=== PATIENT | male | born 1975 | race Caucasian/White ===

== ENCOUNTER 2017-09-05 11:35 | Inpatient (IN) | payer OTHER ==
[2017-09-05 16:30] VITALS: BMI 30.2
--- NOTE | 2017-09-05 20:56 | HP ---
COWS - Scale Resting Pulse: 1= [place] 81-100 Sweatin= Beads of Sweat on Face Restless Observation: 1= Difficult to Sit Still Pupil Size: 1= Pupils >than Normal Bone or Joint Aches: 4=Acute Joint/Muscle Pain Runny Nose/ Eye Tearin= Runny Nose/Eyes GI Upset > 30mins: 3= Vomiting/Diarrhea (vomiting x 2, diarrhea x 2) Tremor Observation: 2= Slight Tremor Visible Yawning Observation: 1= 1-2x During Session Anxiety or Irritability: 2=Irritable/Anxious Goose Flesh Skin: 0=Smooth Skin COWS Score: 20 CIWA Score - CIWA Score Nausea/Vomitin Muscle Tremors: 4-Moderate,w/Arms Extend Anxiety: 3 Agitation: 4-Moderately Restless Paroxysmal Sweats: 3 Orientation: 0-Oriented Tacttile Disturbances: 0-None Auditory Disturbances: 0-None Visual Disturbances: 0-None Headache: 3-Moderate CIWA-Ar Total Score: 20 Admission ROS S - HPI Chief Complaint: Alcohol and opioid withdrawal symptoms Allergies/Adverse Reactions: Allergies Allergy/AdvReac Type Severity Reaction Status Date / Time No Known Allergies Allergy Verified 09/05/17 20:39 History of Present Illness: 42 years old male with a long history of alcohol and opioid dependence is seeking admission to detox. Patient has been in previous detox and reports 3 years of sobriety when he was in longterm. He has medical history of Hep. C and depression. Denies suicide attempt and suicidal ideation at this time Exam Limitations: No Limitations - Ebola screening Have you traveled outside of the country in the last 21 days: No (N) Have you had contact with anyone from an Ebola affected area: No Have you been sick,other than usual withdrawal symptoms: No Do you have a fever: No - Review of Systems Constitutional: Chills, Loss of Appetite, Malaise, Night Sweats, Changes in sleep EENT: reports: No Symptoms Reported Respiratory: reports: No Symptoms reported Cardiac: reports: No Symptoms Reported GI: reports: Diarrhea, Nausea, Poor Appetite, Poor Fluid Intake, Vomiting, Abdominal cramping : reports: No Symptoms Reported Musculoskeletal: reports: Back Pain, Muscle Pain, Muscle Weakness Integumentary: reports: Dryness, Sweating Neuro: reports: Headache, Tingling, Tremors Endocrine: reports: No Symptoms Reported Hematology: reports: No Symptoms Reported Psychiatric: reports: Orientated x3, Anxious Other Systems: Reviewed and Negative Patient History - Patient Medical History Hx Anemia: No Hx Asthma: No Hx Chronic Obstructive Pulmonary Disease (COPD): No Hx Cancer: No Hx Cardiac Disorders: No Hx Congestive Heart Failure: No Hx Hypertension: No Hx Hypercholesterolemia: No Hx Pacemaker: No HX Cerebrovascular Accident: No Hx Seizures: No Hx Diabetes: No Hx Gastrointestinal Disorders: No Hx Liver Disease: Yes (Hep. C) Hx Genitourinary Disorders: No Hx Sexually Transmitted Disorders: No Hx Renal Disease (ESRD): No Hx Thyroid Disease: No Hx Human Immunodeficiency Virus (HIV): No (Negative 2017) Hx Hepatitis C: Yes (Not treated) Hx Depression: Yes (Not on medication) Hx Suicide Attempt: No (Denies suicidal ideation at this time) Hx Bipolar Disorder: No Hx Schizophrenia: No - Patient Surgical History Past Surgical History: No Hx Neurologic Surgery: No Hx Cataract Extraction: No Hx Cardiac Surgery: No Hx Lung Surgery: No Hx Abdominal Surgery: No Hx Appendectomy: No Hx Cholecystectomy: No Hx Genitourinary Surgery: No Hx Section: No Hx Orthopedic Surgery: No Anesthesia Reaction: No - PPD History Previous Implant?: Yes Documented Results: Negative w/o proof Implanted On Prior [facility] Admission?: No PPD to be Administered?: Yes - Reproductive History Patient is a Female of Child Bearing Age (11 -55 yrs old): No (Male) - Smoking Cessation Smoking history: Current every day smoker Have you smoked in the past 12 months: Yes Aproximately how many cigarettes per day: 20 Hx Chewing Tobacco Use: No Initiated information on smoking cessation: Yes 'Breaking Loose' booklet given: 09/05/17 - Substance & Tx. History Hx Alcohol Use: Yes Hx Substance Use: Yes Substance Use Type: Heroin, Opiates - Substances Abused Alcohol Route: Oral Frequency: Daily Amount used: LIQUOR- 2 PINTS, BEER- 3 SIX PACK Age of first use: 12 Date of Last Use: 09/05/17 Heroin Route: Injection Frequency: Daily Amount used: 8 BAGS Age of first use: 12 Date of Last Use: 09/05/17 Family Disease History - Family Disease History Family Disease History: Other: Father (AIDS - ), Mother (HIV+ - ) Admission Physical Exam BHS - Vital Signs Vital Signs: Vital Signs - 24 hr 09/05/17 16:28 Temperature 97.8 F Pulse Rate 91 H Respiratory 19 Rate Blood Pressure 137/72 - Physical General Appearance: Yes: Moderate Distress, Tremorous, Irritable, Sweating, Anxious HEENTM: Yes: EOMI, Normal Voice, ELISABETH, Nasal Congestion, Rhinorrhea Respiratory: Yes: Lungs Clear, Normal Breath Sounds, No Respiratory Distress Neck: Yes: Supple Breast: Yes: Breast Exam Deferred Cardiology: Yes: Regular Rhythm, Regular Rate, S1, S2 Abdominal: Yes: Normal Bowel Sounds, Soft Genitourinary: Yes: Within Normal Limits Back: Yes: Normal Inspection Musculoskeletal: Yes: Within Normal Limits Extremities: Yes: Tremors 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: Yes: Alert, Normal Mood/Affect Integumentary: Yes: Warm Lymphatic: Yes: Within Normal Limits - Diagnostic (1) Opioid dependence with withdrawal Current Visit: Yes Status: Chronic (2) Alcohol dependence with uncomplicated withdrawal Current Visit: Yes Status: Chronic (3) Hep C w/o coma, chronic Current Visit: Yes Status: Chronic (4) Depression Current Visit: Yes Status: Chronic Qualifiers: Major depression episode severity: unspecified (5) Nicotine dependence Current Visit: Yes Status: Chronic Qualifiers: Nicotine product type: cigarettes Cleared for Admission S - Detox or Rehab [facility] Level of Care: Medically Managed Detox Regimen/Protocol: Methadone/Librium S Breath Alcohol Content Breath Alcohol Content: 0 Urine Drug Screen - Results Drug Screen Negative: No Urine Drug Screen Results: OPI-Opiates, MTD-Methadone, OXY-Oxycodone
[2017-09-05] MEDS ORDERED: IBUPROFEN 400 MG TABLET (FP) PO PRN (21:08)
[2017-09-05] MEDS ORDERED: MAGNESIUM CITRATE 300 ML BOTTLE PO PRN (21:08)
[2017-09-05] MEDS ORDERED: chlordiazePOXIDE HCL 25 MG CAPSULE PO PRN (21:08)
[2017-09-05] MEDS ORDERED: ACETAMINOPHEN 325 MG TABLET (FP) PO PRN (21:08)
[2017-09-05] MEDS ORDERED: P-EPHED 60MG/TRIPROLIDI 2.5MG TABLET PO PRN (21:08)
[2017-09-05] MEDS ORDERED: MAG HYDROX/AL HYDROX/SIMETH 30 ML UNIT-DOSE CUP PO PRN (21:08)
[2017-09-05] MEDS ORDERED: LOPERAMIDE HCL 2 MG CAPSULE PO PRN (21:08)
[2017-09-05] MEDS ORDERED: guaiFENesin/D-METHORPHAN HB 10 ML UNIT-DOSE CUPS PO PRN (21:08)
[2017-09-05] MEDS ORDERED: MAGNESIUM HYDROX 2400MG/30ML ORAL SUSPENSION 30 ML CUP PO PRN (21:08)
[2017-09-05] MEDS ORDERED: NICOTINE POLACRILEX 2 MG GUM BC PRN (21:08)
[2017-09-05] MEDS ORDERED: MENTHOL/PHENOL 1 EACH UD MM PRN (21:08)
[2017-09-05] MEDS ORDERED: METHADONE HCL 10 MG TABLET (FOR DETOX USE ONLY) PO ONE ×2 (21:08→23:00)
[2017-09-05] MEDS: chlordiazePOXIDE HCL 25 MG CAPSULE PO SCH (23:01)
[2017-09-05] MEDS: THIAMINE HCL 100 MG TABLET (FP) PO SCH (23:01)
[2017-09-05 23:41] LABS: URINE APPEARANCE CLEAR; URINE BILIRUBIN NEGATIVE (NEGATIVE); URINE BLOOD NEGATIVE (NEGATIVE); URINE COLOR COLORLESS; URINE GLUCOSE (UA) NEGATIVE (NEGATIVE); URINE KETONE NEGATIVE (NEGATIVE); URINE LEUK ESTERASE NEGATIVE (NEGATIVE); URINE NITRITE NEGATIVE (NEGATIVE); URINE PROTEIN NEGATIVE (NEGATIVE); URINE UROBILINOGEN NEGATIVE mg/dL (0.2-1.0)
[2017-09-06] MEDS: chlordiazePOXIDE HCL 25 MG CAPSULE PO SCH ×4 (05:23→22:07)
--- NOTE | 2017-09-06 08:44 | EKG ---
Test Reason : Blood Pressure : / mmHG Vent. Rate : 090 BPM Atrial Rate : 090 BPM P-R Int : 164 ms QRS Dur : 082 ms QT Int : 364 ms P-R-T Axes : 060 030 035 degrees QTc Int : 445 ms NORMAL SINUS RHYTHM NORMAL ECG NO PREVIOUS ECGS AVAILABLE Confirmed by JACOB STEPHENS, AYDEN ([id number]) on 09/06/2017 8:43:36 AM Referred By: Confirmed By:AYDEN JAMES MD
--- NOTE | 2017-09-06 09:53 | CONSULT ---
[facility] Psychiatric Consult - Data Date of interview: 09/06/17 Admission source: [facility] Identifying data: Readmission to [facility] for this 42 y/o male seeking detox treatment on for alcohol and heroin dependence.Patient is single,a father of six,homeless,unemployed and supported on Public Assistance. Substance Abuse History: Confirmed by patient in this interview. Smoking history : Current every day smoker. Have you smoked in the past 12 months: Yes. Aproximately how many cigarettes per day: 20. Hx Chewing Tobacco Use: No. Initiated information on smoking cessation: Yes. 'Breaking Loose' booklet given : 09/05/17. - Substance & Tx. History. Hx Alcohol Use: Yes. Hx Substance Use : Yes. Substance Use Type: Heroin, Opiates. - Substances Abused. Alcohol. Route: Oral. Frequency: Daily. Amount used: LIQUOR- 2 PINTS, BEER- 3 SIX PACK. Age of first use: 12. Date of Last Use: 09/05/17. Heroin. Route: Injection. Frequency: Daily. Amount used: 8 BAGS. Age of first use: 12. Date of Last Use: 09/05/17 Medical History: Hepatitis C. Psychiatric History: Patient denies. Physical/Sexual Abuse/Trauma History: Patient denies. Additional Comment: Urine Drug Screen Results: OPI-Opiates, MTD-Methadone, OXY- Oxycodone.Noted. Mental Status Exam - Mental Status Exam Alert and Oriented to: Time, Place, Person Cognitive Function: Good Patient Appearance: Well Groomed (tattoos painted over neck,arms and forearms) Mood: Hopeful, Euthymic Affect: Appropriate, Normal Range Patient Behavior: Appropriate, Cooperative Speech Pattern: Clear, Appropriate Voice Loudness: Normal Thought Process: Intact, Goal Oriented Thought Disorder: Not Present Hallucinations: Denies Suicidal Ideation: Denies Homicidal Ideation: Denies Insight/Judgement: Poor Sleep: Well Appetite: Good Muscle strength/Tone: Normal Gait/Station: Normal Psychiatric Findings - Problem List ([place] 1, 2,3) (1) Alcohol dependence with uncomplicated withdrawal Current Visit: Yes Status: Acute (2) Opioid dependence with withdrawal Current Visit: Yes Status: Acute (3) Nicotine dependence Current Visit: Yes Status: Acute Qualifiers: Nicotine product type: cigarettes Substance use status: in withdrawal Qualified Code(s): F17.213 - Nicotine dependence, cigarettes, with withdrawal - Initial Treatment Plan Initial Treatment Plan: Psychoeducation.Sleep hygiene discussed.Patient is made aware of scheduled groups,community meetings and recreational activities and he is encouraged to join/participate.Mr Moya agrees.Will monitor daily progress.
[2017-09-06] MEDS ORDERED: METHADONE HCL 10 MG TABLET (FOR DETOX USE ONLY) PO SCH (10:00)
--- NOTE | 2017-09-06 10:04 | PN ---
[facility] CIWA - CIWA Score Nausea/Vomitin-No Nausea/No Vomiting Muscle Tremors: 4-Moderate,w/Arms Extend Anxiety: 4-Mod. Anxious/Guarded Agitation: 4-Moderately Restless Paroxysmal Sweats: 1-Minimal Palms Moist Orientation: 0-Oriented Tacttile Disturbances: 3-Moderate Itch/Numb/Burn Auditory Disturbances: 0-None Visual Disturbances: 0-None Headache: 0-None Present CIWA-Ar Total Score: 16 BHS COWS - Scale Resting Pulse: 0= NC 80 or Below Sweatin= Chills/Flushing Restless Observation: 3= Extraneous Movement Pupil Size: 2= Moderately Dilated Bone or Joint Aches: 4=Acute Joint/Muscle Pain Runny Nose/ Eye Tearin= Nasal Congestion GI Upset > 30mins: 1= Stomach Cramp Tremor Observation of Outstretched Hands: 1= Tremor [place], Not Seen Yawning Observation: 2= >3x During Session Anxiety or Irritability: 2=Irritable/Anxious Goose Flesh Skin: 0=Smooth Skin COWS Score: 17 S Progress Note (SOAP) Subjective: ANXIETY,IRRITABILITY, SWEATS, TREMORS. Objective: 09/06/17 10:03 Vital Signs Temperature 97 F L 09/06/17 06:17 Pulse Rate 65 09/06/17 06:17 Respiratory Rate 18 09/06/17 06:17 Blood Pressure 105/64 09/06/17 06:17 O2 Sat by Pulse Oximetry (%) Laboratory Last Values Urine Color Colorless 09/05/17 20:22 Urine Appearance Clear 09/05/17 20:22 Urine pH 6.0 (5.0-8.0) 09/05/17 20:22 Ur Specific [place] 1.003 (1.001-1.035) 09/05/17 20:22 Urine Protein Negative (NEGATIVE) 09/05/17 20:22 Urine Glucose (UA) Negative (NEGATIVE) 09/05/17 20:22 Urine Ketones Negative (NEGATIVE) 09/05/17 20:22 Urine Blood Negative (NEGATIVE) 09/05/17 20:22 Urine Nitrite Negative (NEGATIVE) 09/05/17 20:22 Urine Bilirubin Negative (NEGATIVE) 09/05/17 20:22 Urine Urobilinogen Negative mg/dL (0.2-1.0) 09/05/17 20:22 Ur Leukocyte Esterase Negative (NEGATIVE) 09/05/17 20:22 OTHER LABS PENDING Assessment: 09/06/17 10:03 WITHDRAWAL SX Plan: CONTINUE DETOX
[2017-09-06] MEDS: NICOTINE 14 MG/24 HOURS TOPICAL PATCH TD SCH (10:07)
[2017-09-06] MEDS: PRENATAL VITAMINS W/ FOLIC ACID TABLET (FP) PO SCH (10:07)
[2017-09-06 10:33] LABS: HEMATOCRIT 38.3 % (35.4-49); HEMOGLOBIN 13.3 GM/dL (11.7-16.9); MCH 28.1 pg (25.7-33.7); MCHC 34.7 g/dl (32.0-35.9); MEAN CELL VOLUME 80.8 fl (80-96); PLATELET COUNT 155 K/MM3 (134-434); RBC 4.74 M/mm3 (4.00-5.60); RDW 15.5 % (11.9-15.9); WHITE BLOOD COUNT 8.6 K/mm3 (4.0-10.0)
[2017-09-06 10:34] LABS: ALBUMIN 3.2 g/dl (3.4-5.0); ANION GAP 7 (8-16); BLOOD UREA NITROGEN 13 mg/dL (7-18); CALCIUM 7.7 mg/dL (8.5-10.1); CHLORIDE 104 mmol/L (98-107); CO2 27 mmol/L (21-32); GLUCOSE,RANDOM 111 mg/dL (74-106); POTASSIUM 3.7 mmol/L (3.5-5.1); SODIUM 138 mmol/L (136-145)
[2017-09-06 10:40] LABS: ALK PHOS 86 U/L (45-117); BILIRUBIN,TOTAL 0.4 mg/dL (0.2-1.0); CREATININE 0.7 mg/dL (0.7-1.3); SGOT/AST 18 U/L (15-37); SGPT/ALT 29 U/L (12-78); TOT PROT 6.7 g/dl (6.4-8.2)
[2017-09-06] MEDS: THIAMINE HCL 100 MG TABLET (FP) PO SCH (22:07)
[2017-09-07] MEDS: chlordiazePOXIDE HCL 25 MG CAPSULE PO SCH ×2 (06:14→10:12)
[2017-09-07] MEDS ORDERED: AMMONIUM LACTATE 12% LOTION 225 GM BOTTLE TP SCH (10:00)
[2017-09-07] MEDS ORDERED: METHADONE HCL 5 MG TABLET (FOR DETOX USE ONLY) PO SCH (10:00)
[2017-09-07] MEDS: PRENATAL VITAMINS W/ FOLIC ACID TABLET (FP) PO SCH (10:13)
[2017-09-07] MEDS: NICOTINE 14 MG/24 HOURS TOPICAL PATCH TD SCH (10:14)
[2017-09-07] MEDS ORDERED: COLLOIDAL OATMEAL 1 BAR EACH TP PRN (10:17)
[2017-09-07 10:21] VITALS: PULSE 85
[2017-09-07 13:46] VITALS: BP 136/87; TEMP 97.9
--- NOTE | 2017-09-07 15:42 | PN ---
S CIWA - CIWA Score Nausea/Vomitin Muscle Tremors: None Anxiety: 4-Mod. Anxious/Guarded Agitation: 4-Moderately Restless Paroxysmal Sweats: 3 Orientation: 0-Oriented Tacttile Disturbances: 3-Moderate Itch/Numb/Burn Auditory Disturbances: 0-None Visual Disturbances: 0-None Headache: 0-None Present CIWA-Ar Total Score: 17 BHS COWS - Scale Resting Pulse: 1= [place] 81-100 Sweatin=Flushed/Facial Moisture Restless Observation: 1= Difficult to Sit Still Pupil Size: 0= Normal to Room Light Bone or Joint Aches: 1= Mild Discomfort Runny Nose/ Eye Tearin= None GI Upset > 30mins: 2= Nausea/Diarrhea Tremor Observation of Outstretched Hands: 0= None Yawning Observation: 1= 1-2x During Session Anxiety or Irritability: 2=Irritable/Anxious Goose Flesh Skin: 3=Piloerection COWS Score: 13 BHS Progress Note (SOAP) Subjective: Sweating, Fatigue, Anxious, Tremors, Nausea, Diarrhea. Objective: PATIENT A & O X 3, OBSERVED AMBULATING ON UNIT. NO ACUTE DISTRESS. 09/07/17 15:41 Vital Signs Temperature 97.9 F 09/07/17 13:46 Pulse Rate 85 09/07/17 13:46 Respiratory Rate 16 09/07/17 13:46 Blood Pressure 136/87 09/07/17 13:46 O2 Sat by Pulse Oximetry (%) Laboratory Tests 09/05/17 09/06/17 09/06/17 20:22 07:00 07:00 WBC 8.6 RBC 4.74 Hgb 13.3 Hct 38.3 MCV 80.8 MCH 28.1 MCHC 34.7 RDW 15.5 Plt Count 155 MPV 11.0 Sodium Potassium Chloride Carbon Dioxide Anion Gap BUN Creatinine Creat Clearance w eGFR Random Glucose Calcium Total Bilirubin AST ALT Alkaline Phosphatase Total Protein Albumin Urine Color Colorless Urine Appearance Clear Urine pH 6.0 Ur Specific [place] 1.003 Urine Protein Negative Urine Glucose (UA) Negative Urine Ketones Negative Urine Blood Negative Urine Nitrite Negative Urine Bilirubin Negative Urine Urobilinogen Negative Ur Leukocyte Esterase Negative RPR Titer HIV 1&2 Antibody Screen Negative HIV P24 Antigen Negative 09/06/17 09/06/17 07:00 07:00 WBC RBC Hgb Hct MCV MCH MCHC RDW Plt Count MPV Sodium 138 Potassium 3.7 Chloride 104 Carbon Dioxide 27 Anion Gap 7 L BUN 13 Creatinine 0.7 Creat Clearance w eGFR > 60 Random Glucose 111 H Calcium 7.7 L Total Bilirubin 0.4 AST 18 ALT 29 Alkaline Phosphatase 86 Total Protein 6.7 Albumin 3.2 L Urine Color Urine Appearance Urine pH Ur Specific [place] Urine Protein Urine Glucose (UA) Urine Ketones Urine Blood Urine Nitrite Urine Bilirubin Urine Urobilinogen Ur Leukocyte Esterase RPR Titer Nonreactive HIV 1&2 Antibody Screen HIV P24 Antigen LABS NOTED. Assessment: 09/07/17 15:41 WITHDRAWAL SYMPTOMS. Plan: CONTINUE DETOX.
--- NOTE | 2017-09-07 15:43 | DS ---
[facility] Detox Discharge Summary Admission Date: 09/05/17 Discharge Date: 09/07/17 - History Present History: Alcohol Dependence, Opioid Dependence Additional Comments: PATIENT DOES NOT WISH TO STAY TO COMPLETE DETOX REGIMEN. RISKS OF LEAVING DETOX UNIT AGAINST MEDICAL ADVICE AND PRIOR TO COMPLETION OF DETOX REGIMEN EXPLAINED TO PATIENT. PATIENT ADVISED TO GO IMMEDIATELY TO NEAREST ER SHOULD ANY INTOLERABLE DETOX SYMPTOMS DEVELOP AT ANY TIME. PATIENT LEFT DETOX UNIT IN STABLE MEDICAL CONDITION. Pertinent Past History: Hep C, Depression, Nicotine Dependence. - Physical Exam Results Vital Signs: Vital Signs Temperature 97.9 F 09/07/17 13:46 Pulse Rate 85 09/07/17 13:46 Respiratory Rate 16 09/07/17 13:46 Blood Pressure 136/87 09/07/17 13:46 O2 Sat by Pulse Oximetry (%) Pertinent Admission Physical Exam Findings: WITHDRAWAL SYMPTOMS. Laboratory Tests 09/05/17 09/06/17 09/06/17 20:22 07:00 07:00 WBC 8.6 RBC 4.74 Hgb 13.3 Hct 38.3 MCV 80.8 MCH 28.1 MCHC 34.7 RDW 15.5 Plt Count 155 MPV 11.0 Sodium Potassium Chloride Carbon Dioxide Anion Gap BUN Creatinine Creat Clearance w eGFR Random Glucose Calcium Total Bilirubin AST ALT Alkaline Phosphatase Total Protein Albumin Urine Color Colorless Urine Appearance Clear Urine pH 6.0 Ur Specific [place] 1.003 Urine Protein Negative Urine Glucose (UA) Negative Urine Ketones Negative Urine Blood Negative Urine Nitrite Negative Urine Bilirubin Negative Urine Urobilinogen Negative Ur Leukocyte Esterase Negative RPR Titer HIV 1&2 Antibody Screen Negative HIV P24 Antigen Negative 09/06/17 09/06/17 07:00 07:00 WBC RBC Hgb Hct MCV MCH MCHC RDW Plt Count MPV Sodium 138 Potassium 3.7 Chloride 104 Carbon Dioxide 27 Anion Gap 7 L BUN 13 Creatinine 0.7 Creat Clearance w eGFR > 60 Random Glucose 111 H Calcium 7.7 L Total Bilirubin 0.4 AST 18 ALT 29 Alkaline Phosphatase 86 Total Protein 6.7 Albumin 3.2 L Urine Color Urine Appearance Urine pH Ur Specific [place] Urine Protein Urine Glucose (UA) Urine Ketones Urine Blood Urine Nitrite Urine Bilirubin Urine Urobilinogen Ur Leukocyte Esterase RPR Titer Nonreactive HIV 1&2 Antibody Screen HIV P24 Antigen LABS NOTED. - Treatment Hospital Course: Detoxed Safely - Medication Discharge Medications: Ambulatory Orders NK [No Known Home Medication] 09/05/17 - Diagnosis (1) Alcohol dependence with uncomplicated withdrawal Current Visit: Yes Status: Acute (2) Nicotine dependence Current Visit: Yes Status: Acute Qualifiers: Nicotine product type: cigarettes Substance use status: in withdrawal Qualified Code(s): F17.213 - Nicotine dependence, cigarettes, with withdrawal (3) Opioid dependence with withdrawal Current Visit: Yes Status: Acute (4) Depression Current Visit: Yes Status: Chronic Qualifiers: Depression Type: unspecified Qualified Code(s): F32.9 - Major depressive disorder, single episode, unspecified (5) Hep C w/o coma, chronic Current Visit: Yes Status: Chronic - AMA Did Patient Leave Against Medical Advice: Yes (PATIENT DID NOT WISH TO STAY TO COMPLETE DETOX REGIMEN.)
[2017-09-07] MEDS ORDERED: chlordiazePOXIDE 5 MG CAPSULE PO SCH (23:00)
[2017-09-08] MEDS ORDERED: chlordiazePOXIDE HCL 10 MG CAPSULE PO SCH (23:00)
[2017-09-09] MEDS ORDERED: METHADONE HCL 10 MG TABLET (FOR DETOX USE ONLY) PO SCH (10:00)
[2017-09-10] MEDS ORDERED: METHADONE HCL 5 MG TABLET (FOR DETOX USE ONLY) PO SCH (06:00)
== END 2017-09-07 15:50 | disposition left against medical advice (07) | DRG 770 ==
LOC: YASAS 11:35 → Y3N 21:20
PROVIDERS: ADMIT Internal Medicine; ATTEND Internal Medicine
PROC: HZ2ZZZZ Detoxification Services for Substance Abuse Treatment (ICD-10-PCS; principal; 2017-09-05)
DX: F11.23 Opioid dependence with withdrawal (principal); F10.230 Alcohol dependence with withdrawal, uncomplicated; F17.213 Nicotine dependence, cigarettes, with withdrawal; F32.9 Major depressive disorder, single episode, unspecified; B18.2 Chronic viral hepatitis C
CPT/HCPCS: 36415; 80053; 81003; 85027; 86593; 87389; 93005; 93010

== ENCOUNTER 2018-08-27 17:20 | Inpatient (IN) | payer OTHER ==
[2018-08-27 17:56] VITALS: BMI 23.8
--- NOTE | 2018-08-27 21:01 | HP ---
COWS - Scale Resting Pulse: 1= [place] 81-100 Sweatin=Flushed/Facial Moisture Restless Observation: 3= Extraneous Movement Pupil Size: 0= Normal to Room Light Bone or Joint Aches: 4=Acute Joint/Muscle Pain Runny Nose/ Eye Tearin= Nasal Congestion GI Upset > 30mins: 2= Nausea/Diarrhea Tremor Observation: 1= Tremor Lena, Not Seen Yawning Observation: 0= None Anxiety or Irritability: 2=Irritable/Anxious Goose Flesh Skin: 0=Smooth Skin COWS Score: 16 CIWA Score Nausea/Vomitin Muscle Tremors: 1-None Visible, but [place] Anxiety: 4-Mod. Anxious/Guarded Agitation: 4-Moderately Restless Paroxysmal Sweats: 3 Orientation: 0-Oriented Tacttile Disturbances: 2-Mild Itch/Numbness/Burn Auditory Disturbances: 0-None Visual Disturbances: 0-None Headache: 0-None Present CIWA-Ar Total Score: 17 - Admission Criteria [facility] Guidelines: Admission for Medically Managed Detox: Requires at least one of the followin. CIWA greater than 12 2. Seizures within the past 24 hours 3. Delirium tremens within the past 24 hours 4. Hallucinations within the past 24 hours 5. Acute intervention needed for co occurring medical disorder 6. Acute intervention needed for co occurring psychiatric disorder 7. Severe withdrawal that cannot be handled at a lower level of care (continued vomiting, continued diarrhea, abnormal vital signs) requiring intravenous medication and/or fluids 8. Patient presents the following: CIWA greater than 12 Admission Criteria Met: Admission criteria met Admission ROS [facility] Chief Complaint: SEEKING DETOX FOR C/O OF WORSENING WITHDRAWAL SX'S. Allergies/Adverse Reactions: Allergies Allergy/AdvReac Type Severity Reaction Status Date / Time No Known Allergies Allergy Verified 08/27/18 20:26 History of Present Illness: 43 Y.O. MALE WITH HX/O OPIOID AND ALCOHOL DEPENDENCE HERE FOR DETOX. KNOWN TO THE PROGRAM. HE IS SELF REFERRED. LAST ADMISSION 08/2017. PRESENTS WITH C/O WORSENING WITHDRAWAL SX'S. COWS- 16, CIWA-17. ELMO 0. STATES LAST DRINK 1 DAY AGO. UTOX + FOR ZEE, FENTANYL, OPIATES, METHADONE. CLIENT DENIES METHADONE USE. BUT DOES REPORTS TAKING A DOSE OF STREET METHADONE 240 MG A WEEK AGO. DENIES METHADONE PROGRAM. REPORTS LONGEST CLEAN TIME 9 YEARS WHILE INCARCERATED FOR 3 YEARS AND THEN SELF MAINTAINED FOR 5 YEARS. RELAPSING 10/2017. DENIES ANY RECENT CLEAN TIME. 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 PMHX- DENIES PSYCH- BIPOLAR, DEPRESSION- DENIES MED MGMT Exam Limitations: No Limitations - Ebola screening Have you traveled outside of the country in the last 21 days: No (N) Have you had contact with anyone from an Ebola affected area: No Have you been sick,other than usual withdrawal symptoms: No Do you have a fever: No - Review of Systems Constitutional: Chills, Loss of Appetite, Malaise, Night Sweats, Changes in sleep EENT: reports: No Symptoms Reported Respiratory: reports: No Symptoms reported Cardiac: reports: No Symptoms Reported GI: reports: Diarrhea, Nausea, Poor Appetite, Poor Fluid Intake, Vomiting : reports: No Symptoms Reported Musculoskeletal: reports: Back Pain Integumentary: reports: Flushing, Sweating Neuro: reports: Weakness (GENERALIZED) Endocrine: reports: No Symptoms Reported Hematology: reports: No Symptoms Reported Psychiatric: reports: Orientated x3, Anxious, Depressed Other Systems: Reviewed and Negative Patient History - Patient Medical History Hx Anemia: No Hx Asthma: No Hx Chronic Obstructive Pulmonary Disease (COPD): No Hx Cancer: No Hx Cardiac Disorders: No Hx Congestive Heart Failure: No Hx Hypertension: No Hx Hypercholesterolemia: No Hx Pacemaker: No HX Cerebrovascular Accident: No Hx Seizures: No Hx Diabetes: No Hx Gastrointestinal Disorders: No Hx Liver Disease: Yes (Hep. C) Hx Genitourinary Disorders: No Hx Sexually Transmitted Disorders: No Hx Renal Disease (ESRD): No Hx Thyroid Disease: No Hx Human Immunodeficiency Virus (HIV): No Hx Hepatitis C: Yes (TX'ED) Hx Depression: Yes (Not on medication) Hx Suicide Attempt: No (Denies suicidal ideation at this time) Hx Bipolar Disorder: No Hx Schizophrenia: No - Patient Surgical History Past Surgical History: No Hx Neurologic Surgery: No Hx Cataract Extraction: No Hx Cardiac Surgery: No Hx Lung Surgery: No Hx Breast Surgery: No Hx Breast Biopsy: No Hx Abdominal Surgery: No Hx Appendectomy: No Hx Cholecystectomy: No Hx Genitourinary Surgery: No Hx Section: No Hx Orthopedic Surgery: No Anesthesia Reaction: No - PPD History Previous Implant?: Yes Documented Results: Negative w/o proof Implanted On Prior [facility] Admission?: Yes Date: 09/07/17 PPD to be Administered?: Yes - Smoking Cessation Smoking history: Current every day smoker Have you smoked in the past 12 months: Yes Aproximately how many cigarettes per day: 20 Cigars Per Day: 0 Hx Chewing Tobacco Use: No Initiated information on smoking cessation: Yes 'Breaking Loose' booklet given: 08/27/18 - Substance & Tx. History Hx Alcohol Use: Yes Hx Substance Use: Yes Substance Use Type: Alcohol, Cocaine, Heroin Hx Substance Use Treatment: Yes ([facility] [place]) - Substances Abused Alcohol Route: Oral Frequency: Daily Amount used: LIQUOR- 1 PINT, BEER- 1 SIX PACK Age of first use: 14 Date of Last Use: 08/26/18 Heroin Route: Injection Frequency: Daily Amount used: 10 BAGS Age of first use: 17 Date of Last Use: 08/26/18 Cocaine Route: Injection Frequency: Daily Amount used: 4 BAGS Age of first use: 14 Date of Last Use: 08/26/18 Family Disease History - Family Disease History Family Disease History: Other: Father (AIDS - ), Mother (HIV+ - ) Admission Physical Exam S - Vital Signs Vital Signs: Vital Signs - 24 hr 08/27/18 17:54 Temperature 98 F Pulse Rate 88 Respiratory 18 Rate Blood Pressure 124/72 - Physical General Appearance: Yes: Appropriately Dressed, Tremorous (FELT), Sweating, Anxious HEENTM: Yes: EOMI, Normocephalic, Normal Voice, ELISABETH, Pharynx Normal, Other ( POOR DENTITON W/ MISSING TEETH) Respiratory: Yes: Chest Non-Tender, Lungs Clear, Normal Breath Sounds, No Respiratory Distress, No Accessory Muscle Use Neck: Yes: No masses,lesions,Nodules, Supple, Trachea in good position Breast: Yes: Breast Exam Deferred Cardiology: Yes: Regular Rhythm, Regular Rate, S1, S2 Abdominal: Yes: Non Tender, Soft, Increased Bowel Sounds Genitourinary: Yes: Other (NO C/O OFFERRED) Back: Yes: Normal Inspection Musculoskeletal: Yes: full range of Motion, Gait Steady Extremities: Yes: Normal Range of Motion, Non-Tender, Tremors 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: Yes: Fully Oriented, Alert, Motor Strength 5/5, Depressed Affect Integumentary: Yes: Warm, Diaphoresis, Moist, Other (FLUSHED) Lymphatic: Yes: Within Normal Limits - Diagnostic (1) Substance induced mood disorder Current Visit: Yes Status: Chronic (2) Alcohol dependence with uncomplicated withdrawal Current Visit: Yes Status: Acute (3) Nicotine dependence Current Visit: Yes Status: Chronic Qualifiers: Nicotine product type: cigarettes Substance use status: in withdrawal Qualified Code(s): F17.213 - Nicotine dependence, cigarettes, with withdrawal (4) Opioid dependence with withdrawal Current Visit: Yes Status: Acute (5) At risk for dehydration due to poor fluid intake Current Visit: Yes Status: Acute Cleared for Admission [facility] - Detox or Rehab [facility] Level of Care: Medically Managed Detox Regimen/Protocol: Methadone/Librium Claeared for Rehab Admission: No [facility] Breath Alcohol Content Breath Alcohol Content: 0 Urine Drug Screen - Results Drug Screen Negative: No Urine Drug Screen Results: ZEE-Cocaine, OPI-Opiates, MTD-Methadone, FEN-Fentanyl Inpatient Rehab Admission - Rehab Decision to Admit Inpatient rehab admission?: No
[2018-08-27] MEDS ORDERED: ACETAMINOPHEN 325 MG TABLET (FP) PO PRN (21:14)
[2018-08-27] MEDS ORDERED: P-EPHED 60MG/TRIPROLIDI 2.5MG TABLET PO PRN (21:14)
[2018-08-27] MEDS ORDERED: IBUPROFEN 400 MG TABLET (FP) PO PRN (21:14)
[2018-08-27] MEDS ORDERED: MAGNESIUM CITRATE 300 ML BOTTLE PO PRN (21:14)
[2018-08-27] MEDS ORDERED: MAGNESIUM HYDROX 2400MG/30ML ORAL SUSPENSION 30 ML CUP PO PRN (21:14)
[2018-08-27] MEDS ORDERED: chlordiazePOXIDE HCL 25 MG CAPSULE PO PRN (21:14)
[2018-08-27] MEDS ORDERED: guaiFENesin/D-METHORPHAN HB 10 ML UNIT-DOSE CUPS PO PRN (21:14)
[2018-08-27] MEDS ORDERED: LOPERAMIDE HCL 2 MG CAPSULE PO PRN (21:14)
[2018-08-27] MEDS ORDERED: NICOTINE POLACRILEX 2 MG GUM BC PRN (21:14)
[2018-08-27] MEDS ORDERED: MENTHOL/PHENOL 1 EACH UD MM PRN (21:14)
[2018-08-27] MEDS ORDERED: METHADONE HCL 10 MG TABLET (FOR DETOX USE ONLY) PO ONE ×2 (21:14→23:00)
[2018-08-27] MEDS ORDERED: MAG HYDROX/AL HYDROX/SIMETH 30 ML UNIT-DOSE CUP PO PRN (21:14)
[2018-08-27] MEDS ORDERED: MELATONIN 5 MG TABLETS PO PRN (22:00)
[2018-08-27] MEDS: THIAMINE HCL 100 MG TABLET (FP) PO SCH (23:00)
[2018-08-27] MEDS: chlordiazePOXIDE HCL 25 MG CAPSULE PO SCH (23:01)
[2018-08-28] MEDS: chlordiazePOXIDE HCL 25 MG CAPSULE PO SCH ×4 (07:20→22:46)
[2018-08-28] MEDS ORDERED: METHADONE HCL 10 MG TABLET (FOR DETOX USE ONLY) PO SCH (10:00)
--- NOTE | 2018-08-28 10:12 | PN ---
[facility] CIWA - CIWA Score Nausea/Vomitin-No Nausea/No Vomiting Muscle Tremors: 4-Moderate,w/Arms Extend Anxiety: 4-Mod. Anxious/Guarded Agitation: 4-Moderately Restless Paroxysmal Sweats: 3 Orientation: 0-Oriented Tacttile Disturbances: 0-None Auditory Disturbances: 0-None Visual Disturbances: 0-None Headache: 1-Very Mild CIWA-Ar Total Score: 16 [facility] COWS - Scale Resting Pulse: 0= [place] 80 or Below Sweatin=Flushed/Facial Moisture Restless Observation: 1= Difficult to Sit Still Pupil Size: 0= Normal to Room Light Bone or Joint Aches: 2= Severe Diffuse Aches Runny Nose/ Eye Tearin= Runny Nose/Eyes GI Upset > 30mins: 0= None Tremor Observation of Outstretched Hands: 2= Slight Tremor Visible Yawning Observation: 2= >3x During Session Anxiety or Irritability: 2=Irritable/Anxious Goose Flesh Skin: 0=Smooth Skin COWS Score: 13 S Progress Note (SOAP) Subjective: irritable agitation sweats shakes body aches interrupted sleep anxiety Objective: 08/28/18 10:10 Vital Signs Temperature 98.1 F 08/28/18 09:36 Pulse Rate 59 L 08/28/18 09:36 Respiratory Rate 18 08/28/18 09:36 Blood Pressure 120/70 08/28/18 09:36 O2 Sat by Pulse Oximetry (%) labs pending aaox3 ambulating no acute distress Assessment: 08/28/18 10:11 withdrawal sx Plan: continue detox increase fluids labs pending
[2018-08-28] MEDS: PRENATAL VITAMINS W/ FOLIC ACID TABLET (FP) PO SCH (10:39)
[2018-08-28] MEDS: NICOTINE 21 MG/24 HOURS TOPICAL PATCH TD SCH (10:39)
[2018-08-28 10:40] LABS: HEMATOCRIT 38.8 % (35.4-49); HEMOGLOBIN 13.5 GM/dL (11.7-16.9); MCH 27.1 pg (25.7-33.7); MCHC 34.9 g/dl (32.0-35.9); MEAN CELL VOLUME 77.8 fl (80-96); MEAN PLT VOLUME 10.6 fl (7.5-11.1); PLATELET COUNT 158 K/MM3 (134-434); RBC 4.99 M/mm3 (4.00-5.60); RDW 17.2 % (11.9-15.9); WHITE BLOOD COUNT 6.8 K/mm3 (4.0-10.0)
[2018-08-28 10:47] LABS: ALK PHOS 80 U/L (45-117); ANION GAP 6 MMOL/L (8-16); BILIRUBIN,TOTAL 0.2 mg/dL (0.2-1); BLOOD UREA NITROGEN 12 mg/dL (7-18); CHLORIDE 103 mmol/L (98-107); CO2 28 mmol/L (21-32); CREATININE 0.9 mg/dL (0.55-1.3); GLUCOSE,RANDOM 117 mg/dL (74-106); SGOT/AST 11 U/L (15-37); SGPT/ALT 17 U/L (13-61); SODIUM 137 mmol/L (136-145); TOT PROT 6.7 g/dl (6.4-8.2)
[2018-08-28] MEDS ORDERED: COLLOIDAL OATMEAL 1 BAR EACH TP PRN (18:21)
[2018-08-28] MEDS: THIAMINE HCL 100 MG TABLET (FP) PO SCH (22:46)
[2018-08-29] MEDS: chlordiazePOXIDE HCL 25 MG CAPSULE PO SCH ×2 (06:44→10:05)
[2018-08-29 09:51] VITALS: BP 142/85; PULSE 82; TEMP 97.5
[2018-08-29] MEDS ORDERED: METHADONE HCL 5 MG TABLET (FOR DETOX USE ONLY) PO SCH (10:00)
[2018-08-29] MEDS: PRENATAL VITAMINS W/ FOLIC ACID TABLET (FP) PO SCH (10:04)
[2018-08-29] MEDS: NICOTINE 21 MG/24 HOURS TOPICAL PATCH TD SCH (10:04)
[2018-08-29] MEDS ORDERED: cloNIDine HCL 0.1 MG TABLET PO SCH (11:00)
--- NOTE | 2018-08-29 11:01 | PN ---
[facility] CIWA - CIWA Score Nausea/Vomitin-No Nausea/No Vomiting Muscle Tremors: 3 Anxiety: 3 Agitation: 3 Paroxysmal Sweats: 3 Orientation: 0-Oriented Tacttile Disturbances: 0-None Auditory Disturbances: 0-None Visual Disturbances: 0-None Headache: 0-None Present CIWA-Ar Total Score: 12 [facility] COWS - Scale Resting Pulse: 1= [place] 81-100 Sweatin=Flushed/Facial Moisture Restless Observation: 1= Difficult to Sit Still Pupil Size: 0= Normal to Room Light Bone or Joint Aches: 2= Severe Diffuse Aches Runny Nose/ Eye Tearin= None GI Upset > 30mins: 1= Stomach Cramp Tremor Observation of Outstretched Hands: 2= Slight Tremor Visible Yawning Observation: 2= >3x During Session Anxiety or Irritability: 2=Irritable/Anxious Goose Flesh Skin: 0=Smooth Skin COWS Score: 13 S Progress Note (SOAP) Subjective: sweats shakes interrupted sleep body aches irritable Objective: 08/29/18 10:59 Vital Signs Temperature 97.5 F L 08/29/18 09:25 Pulse Rate 82 08/29/18 09:25 Respiratory Rate 18 08/29/18 09:25 Blood Pressure 142/85 08/29/18 09:25 O2 Sat by Pulse Oximetry (%) Laboratory Tests 08/28/18 08/28/18 08/28/18 07:00 07:00 07:00 WBC 6.8 RBC 4.99 Hgb 13.5 Hct 38.8 MCV 77.8 L MCH 27.1 MCHC 34.9 RDW 17.2 H Plt Count 158 MPV 10.6 Sodium 137 Potassium 4.0 Chloride 103 Carbon Dioxide 28 Anion Gap 6 L BUN 12 Creatinine 0.9 Creat Clearance w eGFR > 60 Random Glucose 117 H Calcium 8.0 L Total Bilirubin 0.2 AST 11 L ALT 17 Alkaline Phosphatase 80 Total Protein 6.7 Albumin 3.0 L RPR Titer Nonreactive aaox3 ambulating no acute distress Assessment: 08/29/18 11:00 withdrawal sx Plan: continue detox increase fluids clonidine 0.1mg bid with parameters
--- NOTE | 2018-08-29 12:24 | PN ---
[facility] Progress Note Note: pt was very obtrusive and not follow rules of the unit. pt barged into counseling office to use the phone disregarding the fact that the use of the phone is in another part of the unit and he needs to wait his turn. Pt then began to argue with another patient on the unit and was making threatening remarks. pt then proceeded to walk away and started to say that this place is racist and only want black people to use the phone. pt was asked to stop making such accusation by counseling and he began to yell at staff and threaten to hurt somebody. [facility] counseling telephone order supervisor was contacted, security was called and pt was escorted off the unit. pt was involuntary discharged. pt did not hesitate to leave.
--- NOTE | 2018-08-29 12:25 | DS ---
[facility] Detox Discharge Summary Admission Date: 08/27/18 - History Present History: Alcohol Dependence, Opioid Dependence - Physical Exam Results Vital Signs: Vital Signs Temperature 97.5 F L 08/29/18 09:25 Pulse Rate 82 08/29/18 09:25 Respiratory Rate 18 08/29/18 09:25 Blood Pressure 142/85 08/29/18 09:25 O2 Sat by Pulse Oximetry (%) - Treatment Hospital Course: Discharged Condition Good - Medication Discharge Medications: Ambulatory Orders NK [No Known Home Medication] 09/05/17 - AMA Did Patient Leave Against Medical Advice: No (administrative d/c)
[2018-08-29] MEDS ORDERED: chlordiazePOXIDE 5 MG CAPSULE PO SCH (23:00)
[2018-08-30] MEDS ORDERED: chlordiazePOXIDE HCL 10 MG CAPSULE PO SCH (23:00)
[2018-08-31] MEDS ORDERED: METHADONE HCL 10 MG TABLET (FOR DETOX USE ONLY) PO SCH (10:00)
[2018-09-01] MEDS ORDERED: METHADONE HCL 5 MG TABLET (FOR DETOX USE ONLY) PO SCH (06:00)
== END 2018-08-29 12:00 | disposition home or self-care (01) | DRG 773 ==
LOC: YASAS 17:20 → Y6N 21:57
PROVIDERS: ADMIT Surgery; ATTEND Surgery
PROC: HZ2ZZZZ Detoxification Services for Substance Abuse Treatment (ICD-10-PCS; principal; 2018-08-27)
DX: F11.23 Opioid dependence with withdrawal (principal); F10.230 Alcohol dependence with withdrawal, uncomplicated; F14.20 Cocaine dependence, uncomplicated; F19.24 Other psychoactive substance dependence with psychoactive substance-induced mood disorder; F32.9 Major depressive disorder, single episode, unspecified; B18.2 Chronic viral hepatitis C; Z91.89 Other specified personal risk factors, not elsewhere classified
CPT/HCPCS: 36415; 80053; 85027; 86593

== ENCOUNTER 2018-12-05 16:43 | Inpatient (IN) | payer OTHER ==
[2018-12-05 20:58] VITALS: BMI 24.7
--- NOTE | 2018-12-05 22:38 | HP ---
CIWA Score Nausea/Vomitin-No Nausea/No Vomiting Muscle Tremors: 1-None Visible, but [place] Anxiety: 4-Mod. Anxious/Guarded Agitation: 4-Moderately Restless Paroxysmal Sweats: 3 Orientation: 2-Disoriented Date<2 days Tacttile Disturbances: 0-None Auditory Disturbances: 0-None Visual Disturbances: 0-None Headache: 2-Mild CIWA-Ar Total Score: 16 - Admission Criteria [facility] Guidelines: Admission for Medically Managed Detox: Requires at least one of the followin. CIWA greater than 12 2. Seizures within the past 24 hours 3. Delirium tremens within the past 24 hours 4. Hallucinations within the past 24 hours 5. Acute intervention needed for co occurring medical disorder 6. Acute intervention needed for co occurring psychiatric disorder 7. Severe withdrawal that cannot be handled at a lower level of care (continued vomiting, continued diarrhea, abnormal vital signs) requiring intravenous medication and/or fluids 8. Patient presents the following: CIWA greater than 12 Admission Criteria Met: Admission criteria met Admission ROS [facility] Chief Complaint: C/O WITHDRAWAL SX'S. SEEKING DETOX TXMENT Allergies/Adverse Reactions: Allergies Allergy/AdvReac Type Severity Reaction Status Date / Time colloidal oatmeal AdvReac Severe Rash Verified 12/05/18 20:37 [From Aveeno] dimethicone [From Aveeno] AdvReac Severe Rash Verified 12/05/18 20:37 fish derived AdvReac Severe Rash Verified 12/05/18 20:36 menthol [From Aveeno] AdvReac Severe Rash Verified 12/05/18 20:37 soap [From Aveeno] AdvReac Severe Rash Verified 12/05/18 20:37 tomato Allergy Mild Rash Uncoded 12/05/18 20:36 History of Present Illness: 43 Y.O. MALE WITH OPIOID (IVDA) AND ALCOHOLISM HERE FOR DETOX. CLIENT IS SELF REFERRED HE IS KNOWN TO THIS PROGRAM/ LAST DC 08/2018. HE PRESENTS TODAY WITH C/O WITHDRAWAL SX'S. CIWA 16. REPORTS DRINKS DAILY DRINKING FIRST THING IN THE MORNING DUE TO WITHDRAWAL SX'S. HE IS ON MMTP 50 MG ( PENDING VERIFICATION) AT [facility] STATES HE WAS MEDICATED TODAY. REPORTS LONGEST CLEAN TIME 9 YEARS RELAPSING 1 YEAR AGO. HOMELESS, UNEMPLOYED-HRA, DENIES LEGALS Exam Limitations: No Limitations - Ebola screening Have you traveled outside of the country in the last 21 days: No (N) Have you had contact with anyone from an Ebola affected area: No Do you have a fever: No - Review of Systems Constitutional: No Symptoms Reported, Chills, Night Sweats, Changes in sleep EENT: reports: No Symptoms Reported Respiratory: reports: Shortness of Breath (INTERMITTENT. HX/O ASTHMA) Cardiac: reports: No Symptoms Reported GI: reports: Poor Appetite, Poor Fluid Intake : reports: No Symptoms Reported Musculoskeletal: reports: No Symptoms Reported Integumentary: reports: Flushing, Other (R FOREARM ABCESS) Neuro: reports: Headache Endocrine: reports: No Symptoms Reported Hematology: reports: No Symptoms Reported Psychiatric: reports: Orientated x3, Anxious, Depressed (DENIES SI/HI) Other Systems: Reviewed and Negative Patient History - Patient Medical History Hx Anemia: No Hx Asthma: No Hx Chronic Obstructive Pulmonary Disease (COPD): No Hx Cancer: No Hx Cardiac Disorders: No Hx Congestive Heart Failure: No Hx Hypertension: No Hx Hypercholesterolemia: No Hx Pacemaker: No HX Cerebrovascular Accident: No Hx Seizures: No Hx Diabetes: No Hx Gastrointestinal Disorders: No Hx Liver Disease: Yes (Hep. C) Hx Genitourinary Disorders: No Hx Sexually Transmitted Disorders: No Hx Renal Disease (ESRD): No Hx Thyroid Disease: No Hx Human Immunodeficiency Virus (HIV): No Hx Hepatitis C: Yes (TX'ED) Hx Depression: Yes (Not on medication) Hx Suicide Attempt: No Hx Bipolar Disorder: No Hx Schizophrenia: No - Patient Surgical History Past Surgical History: No Hx Neurologic Surgery: No Hx Cataract Extraction: No Hx Cardiac Surgery: No Hx Lung Surgery: No Hx Breast Surgery: No Hx Breast Biopsy: No Hx Abdominal Surgery: No Hx Appendectomy: No Hx Cholecystectomy: No Hx Genitourinary Surgery: No Hx Section: No Hx Orthopedic Surgery: No Anesthesia Reaction: No - PPD History Previous Implant?: Yes Documented Results: Negative w/proof Implanted On Prior R Admission?: Yes Date: 08/29/18 Results: NO RESULTS PPD to be Administered?: No - Smoking Cessation Smoking history: Current every day smoker Have you smoked in the past 12 months: Yes Aproximately how many cigarettes per day: 20 Cigars Per Day: 0 Hx Chewing Tobacco Use: No Initiated information on smoking cessation: Yes 'Breaking Loose' booklet given: 12/05/18 - Substance & Tx. History Hx Alcohol Use: Yes Hx Substance Use: Yes Substance Use Type: Alcohol, Cocaine, Heroin, Prescribed (MMTP) Hx Substance Use Treatment: Yes ([facility]) - Substances abused Alcohol Other (specify): VODKA Substance route: Oral Frequency: Daily Amount used: 20 dollars Age of first use: 14 Date of last use: 12/05/18 Heroin Substance route: Injection Frequency: Daily Amount used: 1 bundle /10 bags Age of first use: 14 Date of last use: 12/04/18 Cocaine Substance route: Inhalation Frequency: 3-6 times per week Amount used: 30 dollars Age of first use: 14 Date of last use: 12/04/18 Marijuana/Hashish Substance route: Smoking Frequency: 1-2 times per week Amount used: 15 dollars Age of first use: 14 Date of last use: 12/03/18 Family Disease History - Family Disease History Family Disease History: Other: Father (AIDS - ), Mother (HIV+ - ) Admission Physical Exam [facility] - Vital Signs Vital Signs: Vital Signs - 24 hr 12/05/18 20:49 Temperature 97.7 F Pulse Rate 61 Respiratory 16 Rate Blood Pressure 95/61 - Physical General Appearance: Yes: Moderate Distress, Intoxicated, Tremorous (FELT), Anxious, Other (FLUSHED) HEENTM: Yes: EOMI, Normocephalic, Normal Voice, ELISABETH, Pharynx Normal, Other ( MISS[place] TEETH, POOR DENTITION) Respiratory: Yes: Chest Non-Tender, Lungs Clear, Normal Breath Sounds, No Respiratory Distress, No Accessory Muscle Use Neck: Yes: No masses,lesions,Nodules, Supple, Trachea in good position Breast: Yes: Breast Exam Deferred Cardiology: Yes: Regular Rhythm, Regular Rate, S1, S2 Abdominal: Yes: Normal Bowel Sounds, Non Tender, Soft, Surgical Scar Genitourinary: Yes: Within Normal Limits Back: Yes: Within Normal Limits Musculoskeletal: Yes: full range of Motion, Gait Steady Extremities: Yes: Normal Capillary Refill, Normal Range of Motion, Non-Tender, Tremors (FELT), Other (R HAND MIDDLE DIGIT AMPUTATION) 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: Yes: Fully Oriented, Alert, Motor Strength 5/5, Depressed Affect Integumentary: Yes: Dry, Warm, Track [place] (TO ARMS AN HANDS), Other (FLUSHED) - Diagnostic (1) Homeless Current Visit: Yes Status: Acute (2) Methadone maintenance therapy patient Current Visit: Yes Status: Chronic (3) Cocaine dependence Current Visit: Yes Status: Acute (4) IVDU (intravenous drug user) Current Visit: Yes Status: Acute (5) Alcohol dependence with uncomplicated withdrawal Current Visit: Yes Status: Acute (6) At risk for dehydration due to poor fluid intake Current Visit: Yes Status: Acute (7) Depression Current Visit: Yes Status: Chronic Qualifiers: Depression Type: unspecified Qualified Code(s): F32.9 - Major depressive disorder, single episode, unspecified (8) Hep C w/o coma, chronic Current Visit: Yes Status: Chronic (9) Nicotine dependence Current Visit: Yes Status: Chronic Qualifiers: Nicotine product type: cigarettes Substance use status: in withdrawal Qualified Code(s): F17.213 - Nicotine dependence, cigarettes, with withdrawal (10) Substance induced mood disorder Current Visit: Yes Status: Suspected (11) Abscess of right forearm Current Visit: Yes Status: Acute (12) Amputation of right middle finger Current Visit: Yes Status: Chronic (13) Track cedillo due to intravenous drug abuse Current Visit: Yes Status: Acute (14) Asthma Current Visit: Yes Status: Chronic Qualifiers: Asthma severity: mild Asthma persistence: intermittent Asthma complication type: unspecified Qualified Code(s): J45.20 - Mild intermittent asthma, uncomplicated Cleared for Admission [facility] - Detox or Rehab [facility] Level of Care: Medically Managed Detox Regimen/Protocol: Librium Claeared for Rehab Admission: No Breathalyzer - Breathalyzer Breathalyzer: 0 Urine Drug Screen - Test Device Lot number: [id number] Expiration date: 08/28/20 - Control Is test valid?: Yes - Results Drug screen NEGATIVE: No Urine drug screen results: ZEE-Cocaine, FEN-Fentanyl, MOP-Opiates, MTD-Methadone Inpatient Rehab Admission - Rehab Decision to Admit Inpatient rehab admission?: No
[2018-12-05] MEDS ORDERED: METHOCARBAMOL 500 MG TABLET PO PRN (22:44)
[2018-12-05] MEDS ORDERED: MENTHOL/PHENOL 1 EACH UD MM PRN (22:44)
[2018-12-05] MEDS ORDERED: MAGNESIUM CITRATE 300 ML BOTTLE PO PRN (22:44)
[2018-12-05] MEDS ORDERED: MAGNESIUM HYDROX 2400MG/30ML ORAL SUSPENSION 30 ML CUP PO PRN (22:44)
[2018-12-05] MEDS ORDERED: hydrOXYzine PAMOATE 25 MG CAPSULE (FP) PO PRN (22:44)
[2018-12-05] MEDS ORDERED: MELATONIN 5 MG TABLETS PO PRN (22:44)
[2018-12-05] MEDS ORDERED: ONDANSETRON *ODT* 4 MG TABLET SL PRN (22:44)
[2018-12-05] MEDS ORDERED: guaiFENesin 200 MG/10 ML 10 ML UNIT-DOSE CUPS PO PRN (22:44)
[2018-12-05] MEDS ORDERED: BISMUTH SUBSALICYLATE 524 MG/30 ML UD PO PRN (22:44)
[2018-12-05] MEDS ORDERED: IBUPROFEN 400 MG TABLET (FP) PO PRN (22:44)
[2018-12-05] MEDS ORDERED: ACETAMINOPHEN 325 MG TABLET (FP) PO PRN ×2 (22:44)
[2018-12-05] MEDS ORDERED: MAG HYDROX/AL HYDROX/SIMETH 30 ML UNIT-DOSE CUP PO PRN (22:44)
[2018-12-05] MEDS ORDERED: chlordiazePOXIDE HCL 25 MG CAPSULE PO PRN (22:44)
[2018-12-05] MEDS ORDERED: P-EPHED 60MG/TRIPROLIDI 2.5MG TABLET PO PRN (22:44)
[2018-12-05] MEDS ORDERED: NICOTINE POLACRILEX 2 MG GUM BUC PRN (22:44)
[2018-12-05] MEDS ORDERED: DICYCLOMINE HCL 10 MG CAPSULE PO PRN (22:44)
[2018-12-05] MEDS ORDERED: ALBUTEROL SO4 2.5/IPRATROPIUM 0.5 INH SOL 3 ML VIAL.NEB. NEB PRN (23:02)
[2018-12-06] MEDS: chlordiazePOXIDE HCL 25 MG CAPSULE PO SCH ×5 (00:35→22:34)
[2018-12-06] MEDS ORDERED: METHADONE HCL 10 MG TABLET PO ONE (08:55)
[2018-12-06] MEDS ORDERED: METHADONE HCL 10 MG TABLET ONE (10:12)
[2018-12-06] MEDS ORDERED: METHADONE HCL 40 MG DISPERSABLE TABLET ONE (10:12)
[2018-12-06 10:27] LABS: PH,URINE 6.5 (5.0-8.0); URINE APPEARANCE CLEAR; URINE BILIRUBIN NEGATIVE (NEGATIVE); URINE COLOR YELLOW; URINE GLUCOSE (UA) NEGATIVE (NEGATIVE); URINE KETONE NEGATIVE (NEGATIVE); URINE LEUK ESTERASE NEGATIVE (NEGATIVE); URINE NITRITE NEGATIVE (NEGATIVE); URINE PROTEIN NEGATIVE (NEGATIVE)
[2018-12-06] MEDS: PRENATAL VITAMINS W/ FOLIC ACID TABLET (FP) PO SCH (10:29)
[2018-12-06] MEDS: METHADONE 40 MG, METHADONE 10 MG PO SCH (10:29)
[2018-12-06] MEDS: NICOTINE 21 MG/24 HOURS TOPICAL PATCH TD SCH (10:30)
--- NOTE | 2018-12-06 12:07 | PN ---
S CIWA - CIWA Score Nausea/Vomitin-No Nausea/No Vomiting Muscle Tremors: 3 Anxiety: 3 Agitation: 4-Moderately Restless Paroxysmal Sweats: 3 Orientation: 0-Oriented Tacttile Disturbances: 0-None Auditory Disturbances: 0-None Visual Disturbances: 0-None Headache: 0-None Present CIWA-Ar Total Score: 13 [facility] Progress Note (SOAP) Subjective: anxiety sweats interrupted sleep body aches restless Objective: 12/06/18 12:06 Vital Signs Temperature 97.7 F 12/06/18 09:32 Pulse Rate 64 12/06/18 09:32 Respiratory Rate 16 12/06/18 09:32 Blood Pressure 124/74 12/06/18 09:32 O2 Sat by Pulse Oximetry (%) Laboratory Tests 12/06/18 08:20 Urine Color Yellow Urine Appearance Clear Urine pH 6.5 Ur Specific [place] 1.011 Urine Protein Negative Urine Glucose (UA) Negative Urine Ketones Negative Urine Blood Negative Urine Nitrite Negative Urine Bilirubin Negative Urine Urobilinogen 1.0 Ur Leukocyte Esterase Negative blood drawn scheduled for tomorrow aaox3 ambulating no acute distress Assessment: 12/06/18 12:07 withdrawal sx Plan: continue detox increase fluids pending labs
[2018-12-06] MEDS: SULFAMETHOXAZOLE PO SCH ×2 (15:50→22:35)
[2018-12-06] MEDS: [UNRECOGNIZED DRUG - OTHER] PO SCH ×2 (15:50→22:35)
[2018-12-06] MEDS: TRIMETHOPRIM PO SCH ×2 (15:50→22:35)
--- NOTE | 2018-12-06 17:15 | CONSULT ---
[facility] Psychiatric Consult - Data Date of interview: 12/06/18 Admission source: [facility] Identifying data: Third admission to [facility] for this 43 y/o male self-referred for detoxification (alcohol, cocaine, heroin). Examined on . Patient is single, a father of six as per records (claimed no children in this interview), homeless, unemployed and supported on welfare. Substance Abuse History: Discussed in this interview. Details in current [facility] report as follows : Smoking history: Current every day smoker. Have you smoked in the past 12 months: Yes. Aproximately how many cigarettes per day: 20. Cigars Per Day: 0. Hx Chewing Tobacco Use: No. Initiated information on smoking cessation: Yes. 'Breaking Loose' booklet given: 12/05/18. - Substance & Tx. History. Hx Alcohol Use: Yes. Hx Substance Use: Yes. Substance Use Type : Alcohol, Cocaine, Heroin, Prescribed (MMTP). Hx Substance Use Treatment: Yes ([facility]). - Substances abused. Alcohol. Other (specify): VODKA. Substance route: Oral. Frequency: Daily. Amount used: 20 dollars. Age of first use: 14. Date of last use: 12/05/18. Heroin. Substance route: Injection. Frequency: Daily. Amount used: 1 bundle /10 bags. Age of first use: 14. Date of last use: 12/04/18. Cocaine. Substance route: Inhalation. Frequency: 3- 6 times per week. Amount used: 30 dollars. Age of first use: 14. Date of last use: 12/04/18. Marijuana/Hashish. Substance route: Smoking. Frequency : 1-2 times per week. Amount used: 15 dollars. Age of first use: 14. Date of last use: 12/03/18 Medical History: Hepatitis C and history of intermittent bronchial asthma. Psychiatric History: Patient admits to a history of one psychiatric hospitalization, years ago, at [facility]. Was diagnosed, as per self-report, with MDD and Bipolar Disorder. Mr Moya states that he has dropped out of psychiatric OPD care for several years. Off prescribed psychotropic medications. No history of suicide attempts. Patient is currently on methadone maintenance (50 mg/day). Physical/Sexual Abuse/Trauma History: Patient denies. Additional Comment: Urine drug screen results: ZEE-Cocaine, FEN-Fentanyl, MOP- Opiates, MTD-Methadone. Noted. Mental Status Exam - Mental Status Exam Alert and Oriented to: Time, Place, Person Cognitive Function: Grossly Intact Patient Appearance: Unkempt, Disheveled (tattoos on both arms) Mood: Nervous, Withdrawn, Irritable Affect: Mood Congruent, Constricted Patient Behavior: Fatigued, Cooperative Speech Pattern: Clear Voice Loudness: Normal Thought Process: Goal Oriented Thought Disorder: Not Present Hallucinations: Denies Suicidal Ideation: Denies Homicidal Ideation: Denies Insight/Judgement: Poor Sleep: Well Appetite: Good Muscle strength/Tone: Normal Gait/Station: Normal Psychiatric Findings - Problem List ([place] 1, 2,3) (1) Alcohol dependence with uncomplicated withdrawal Current Visit: Yes Status: Acute (2) Opioid dependence on agonist therapy Current Visit: Yes Status: Chronic (3) Cocaine dependence Current Visit: Yes Status: Chronic (4) Nicotine dependence Current Visit: Yes Status: Chronic Qualifiers: Nicotine product type: cigarettes Substance use status: in withdrawal Qualified Code(s): F17.213 - Nicotine dependence, cigarettes, with withdrawal (5) Substance induced mood disorder Current Visit: Yes Status: Chronic - Initial Treatment Plan Initial Treatment Plan: Psychoeducation. Detoxification in progress. Sleep hygiene. AA/NA meetings. Observation.
[2018-12-06] MEDS: COLLOIDAL OATMEAL 1 BAR EACH TP PRN (21:02)
[2018-12-06] MEDS ORDERED: THIAMINE HCL 100 MG TABLET (FP) PO SCH (22:00)
[2018-12-07] MEDS ORDERED: METHADONE HCL 10 MG TABLET ONE (05:00)
[2018-12-07] MEDS ORDERED: METHADONE HCL 40 MG DISPERSABLE TABLET ONE (05:01)
[2018-12-07] MEDS: METHADONE 40 MG, METHADONE 10 MG PO SCH (05:45)
[2018-12-07] MEDS: chlordiazePOXIDE HCL 25 MG CAPSULE PO SCH ×2 (05:45→10:36)
[2018-12-07] MEDS ORDERED: METHADONE HCL 40 MG DISPERSABLE TABLET PO SCH (06:00)
[2018-12-07 09:19] VITALS: BP 135/81; PULSE 69; TEMP 97.7
[2018-12-07] MEDS ORDERED: CLOTRIMAZOLE 1% CREAM 15 GM TUBE TP SCH (10:00)
[2018-12-07] MEDS: SULFAMETHOXAZOLE PO SCH (10:36)
[2018-12-07] MEDS: TRIMETHOPRIM PO SCH (10:36)
[2018-12-07] MEDS: PRENATAL VITAMINS W/ FOLIC ACID TABLET (FP) PO SCH (10:36)
[2018-12-07] MEDS: [UNRECOGNIZED DRUG - OTHER] PO SCH (10:36)
[2018-12-07] MEDS: NICOTINE 21 MG/24 HOURS TOPICAL PATCH TD SCH (10:38)
[2018-12-07] MEDS ORDERED: VITAMINS A AND D TOPICAL OINTMENT 60 GM TUBE TP SCH (12:00)
[2018-12-07] MEDS: COLLOIDAL OATMEAL 1 BAR EACH TP PRN (13:40)
--- NOTE | 2018-12-07 13:42 | PN ---
S CIWA - CIWA Score Nausea/Vomitin-Mild Nausea/No Vomiting Muscle Tremors: 2 Anxiety: 2 Agitation: 2 Paroxysmal Sweats: 2 Orientation: 0-Oriented Tacttile Disturbances: 0-None Auditory Disturbances: 0-None Visual Disturbances: 0-None Headache: 0-None Present CIWA-Ar Total Score: 9 S Progress Note (SOAP) Subjective: Feeling weak, patient is anxious, angry and very agitated stating staff has been nasty to him and that night staff only sleeps and do nothing. Patient demanding ice cream (was given to patient within few minutes) for snack and requesting clotrimazole cream for fungal feet and A and D ointment for tattoo on his right forearm. Patient going around on unit asking staff their names and writing down names threatening to report staff to [facility] for no apparent reason. As per patient, staff is lazy and refused to do their work. Patient instructed to speak with nursing retail shift supervisor if he has any problem with staff or any concerns. As per patient, he was cleared to come to the floor at 1pm yesterday and didn't get to the floor until after midnight and that he's reporting it to [facility]. Patient with multiple complaints. Centrifugal Spinner encouraged him to speak with Nursing J[employer] Application Developer but he adamantly refused. Objective: 12/07/18 13:42 Last Vital Signs Temp Pulse Resp BP Pulse Ox 97.7 F 69 16 135/81 12/07/18 09:18 12/07/18 09:18 12/07/18 09:18 12/07/18 09:18 Elevated b/p noted: could be r/t agitation, monitor for now Laboratory Tests 12/06/18 08:20 Urine Color Yellow Urine Appearance Clear Urine pH 6.5 Ur Specific [place] 1.011 Urine Protein Negative Urine Glucose (UA) Negative Urine Ketones Negative Urine Blood Negative Urine Nitrite Negative Urine Bilirubin Negative Urine Urobilinogen 1.0 Ur Leukocyte Esterase Negative UA result noted Lab results from 08/2018: reviewed Assessment: 12/07/18 13:48 Withdrawal symptoms Plan: Continue detox Encouraged PO water intake Patient refused admission labs: CBC, CMP reordered in AM.
--- NOTE | 2018-12-07 15:20 | DS ---
[facility] Detox Discharge Summary Admission Date: 12/05/18 Discharge Date: 12/07/18 - History Present History: Alcohol Dependence, Cannabis Dependence, Cocaine Dependence, Opioid Dependence, MMTP Additional Comments: Patient has been disruptive on the unit. He used splitting against staff. Patient threatened to report staff to [facility]. Patient later demanded to leave despite encouragement from staff to complete detox. Patient instructed to call 911 if feeling sick or withdrawal symptoms and to see his PCP within 3 days. Patient has been stable and in nad but agitated and irritable towards staff. Pertinent Past History: Opioid dependence on agonist Asthma Hepatitis C (treated) Nicotine dependence Cocaine dependence Cannabis use disorder IVDU Depression - Physical Exam Results Vital Signs: Vital Signs Temperature 97.7 F 12/07/18 09:18 Pulse Rate 69 12/07/18 09:18 Respiratory Rate 16 12/07/18 09:18 Blood Pressure 135/81 12/07/18 09:18 O2 Sat by Pulse Oximetry (%) Pertinent Admission Physical Exam Findings: Withdrawal symptoms Laboratory Tests 12/06/18 08:20 Urine Color Yellow Urine Appearance Clear Urine pH 6.5 Ur Specific [place] 1.011 Urine Protein Negative Urine Glucose (UA) Negative Urine Ketones Negative Urine Blood Negative Urine Nitrite Negative Urine Bilirubin Negative Urine Urobilinogen 1.0 Ur Leukocyte Esterase Negative UA noted, refused admission labs - Medication Discharge Medications: Ambulatory Orders Albuterol Sulfate Inhaler - 2 inhaler PO Q4HWA PRN 12/05/18 Clotrimazole 1 applic BID 12/05/18 Methadone [Dolophine -] 50 mg PO DAILY 12/05/18 Sulfamethoxazole/Trimethoprim [Bactrim DS -] 800 mg PO BID 12/05/18 - Diagnosis (1) Cannabis abuse Current Visit: Yes Status: Chronic (2) Tinea pedis of both feet Current Visit: Yes Status: Acute (3) Alcohol dependence with uncomplicated withdrawal Current Visit: Yes Status: Acute (4) IVDU (intravenous drug user) Current Visit: Yes Status: Chronic (5) Asthma Current Visit: Yes Status: Chronic Qualifiers: Asthma severity: mild Asthma persistence: intermittent Asthma complication type: unspecified Qualified Code(s): J45.20 - Mild intermittent asthma, uncomplicated (6) Cocaine dependence Current Visit: Yes Status: Chronic (7) Depression Current Visit: Yes Status: Chronic Qualifiers: Depression Type: unspecified Qualified Code(s): F32.9 - Major depressive disorder, single episode, unspecified (8) Hep C w/o coma, chronic Current Visit: Yes Status: Chronic (9) Nicotine dependence Current Visit: Yes Status: Chronic Qualifiers: Nicotine product type: cigarettes Substance use status: in withdrawal Qualified Code(s): F17.213 - Nicotine dependence, cigarettes, with withdrawal (10) Opioid dependence on agonist therapy Current Visit: Yes Status: Acute - AMA Did Patient Leave Against Medical Advice: Yes (Instructed to call 911 RUPALI if feeling sick or withdrawal symptoms)
[2018-12-07] MEDS ORDERED: chlordiazePOXIDE HCL 10 MG CAPSULE PO SCH (23:00)
[2018-12-07] MEDS ORDERED: chlordiazePOXIDE HCL 10 MG CAPSULE PO PRN (23:00)
[2018-12-08] MEDS ORDERED: chlordiazePOXIDE HCL 10 MG CAPSULE PO SCH (23:00)
== END 2018-12-07 15:30 | disposition left against medical advice (07) | DRG 770 ==
LOC: YASAS 16:43 → Y6N 22:59
PROVIDERS: ADMIT Surgery; ATTEND Surgery
PROC: HZ2ZZZZ Detoxification Services for Substance Abuse Treatment (ICD-10-PCS; principal; 2018-12-05)
DX: F10.230 Alcohol dependence with withdrawal, uncomplicated (principal); F11.20 Opioid dependence, uncomplicated; F14.20 Cocaine dependence, uncomplicated; F12.20 Cannabis dependence, uncomplicated; F17.213 Nicotine dependence, cigarettes, with withdrawal; F32.9 Major depressive disorder, single episode, unspecified; F19.24 Other psychoactive substance dependence with psychoactive substance-induced mood disorder; J45.20 Mild intermittent asthma, uncomplicated; B18.2 Chronic viral hepatitis C; B35.3 Tinea pedis; L02.413 Cutaneous abscess of right upper limb; Z89.021 Acquired absence of right finger(s); Z91.89 Other specified personal risk factors, not elsewhere classified; Z88.8 Allergy status to other drugs, medicaments and biological substances; Z91.013 Allergy to seafood; Z59.0 Homelessness
CPT/HCPCS: 81003

== ENCOUNTER 2020-03-02 15:44 | Inpatient (IN) | payer OTHER ==
--- NOTE | 2020-03-02 16:28 | BHS.RME ---
Substance Use & Tx History - Substance Use History Alcohol Substance amount: 7 x 40 oz beer, 1/5 Vodka Frequency of use: Daily Substance route: Oral Date of Last Use: 03/02/20 Heroin Substance amount: 30 bags Frequency of use: Daily Substance route: Injection (ex: intravenous or skin popping) Date of Last Use: 03/02/20 Physical/Psych/Mental Status - Behavior General Behavior: Increased activity (restlessness, agitation) Eye Contact: Normal - Cooperativeness Cooperativeness: Cooperative - Thinking Thought Processes: Tight Thought content: Future oriented - Physical Health Problems Is patient presently having any pain?: Yes (chronic low back pain) Does patient presently have any injuries (include location): No Does patient currently have a fever: No COWS - Scale Resting Pulse: 1= [place] 81-100 Sweatin= Beads of Sweat on Face Restless Observation: 0= Sits Still Pupil Size: 0= Normal to Room Light Bone or Joint Aches: 1= Mild Discomfort Runny Nose/ Eye Tearin= Runny Nose/Eyes GI Upset > 30mins: 2= Nausea/Diarrhea Tremor Observation: 1= Tremor [place], Not Seen Yawning Observation: 0= None Anxiety or Irritability: 1=Feels Anxious/Irritable Goose Flesh Skin: 0=Smooth Skin COWS Score: 11 CIWA Nausea/Vomitin Muscle Tremors: 1-None Visible, but [place] Anxiety: 3 Agitation: 0-Normal Activity Paroxysmal Sweats: 4-Forehead w/Sweat Beads Orientation: 0-Oriented Tacttile Disturbances: 0-None Auditory Disturbances: 1-Very Mild Visual Disturbances: 0-None Headache: 0-None Present CIWA-Ar Total Score: 12
--- NOTE | 2020-03-02 16:46 | HP ---
COWS - Scale Resting Pulse: 1= [place] 81-100 Sweatin= Beads of Sweat on Face Restless Observation: 0= Sits Still Pupil Size: 1= Pupils >than Normal (Pupils = 3 mm) Bone or Joint Aches: 1= Mild Discomfort Runny Nose/ Eye Tearin= Runny Nose/Eyes GI Upset > 30mins: 2= Nausea/Diarrhea Tremor Observation: 2= Slight Tremor Visible Yawning Observation: 0= None Anxiety or Irritability: 2=Irritable/Anxious Goose Flesh Skin: 0=Smooth Skin COWS Score: 14 CIWA Score Nausea/Vomitin Muscle Tremors: 1-None Visible, but [place] Anxiety: 3 Agitation: 0-Normal Activity Paroxysmal Sweats: 4-Forehead w/Sweat Beads Orientation: 0-Oriented Tacttile Disturbances: 0-None Auditory Disturbances: 1-Very Mild Visual Disturbances: 0-None Headache: 2-Mild (Headache is a '6') CIWA-Ar Total Score: 14 - Admission Criteria [facility] Guidelines: Admission for Medically Managed Detox: Requires at least one of the followin. CIWA greater than 12 2. Seizures within the past 24 hours 3. Delirium tremens within the past 24 hours 4. Hallucinations within the past 24 hours 5. Acute intervention needed for co occurring medical disorder 6. Acute intervention needed for co occurring psychiatric disorder 7. Severe withdrawal that cannot be handled at a lower level of care (continued vomiting, continued diarrhea, abnormal vital signs) requiring intravenous medication and/or fluids 8. Patient presents the following: CIWA greater than 12 Admission Criteria Met: Admission criteria met Admitting History and Physical - Smoking History Smoking history: Current every day smoker Have you smoked in the past 12 months: Yes Aproximately how many cigarettes per day: 20 - Alcohol/Substance Use Hx Alcohol Use: Yes Admission ROS BHS - HPI Chief Complaint: "I'm here to stop using alcohol and heroin and other drugs. I'm tired of hurting myself" Allergies/Adverse Reactions: Allergies Allergy/AdvReac Type Severity Reaction Status Date / Time fish derived AdvReac Severe Rash Verified 03/02/20 18:03 tomato Allergy Mild Rash Uncoded 03/02/20 18:03 History of Present Illness: 44 yo presents w/ alcohol and opioid withdrawal symptoms seeking detox. ELMO: 0.0 UTox: + ZEE/FEN/MOP/MTD Denies seizures, blackouts, or overdoses. Alcohol use began at age 14. 7-40 oz beers and 1 pint vodka or whiskey daily. Last drink today. Heroin use since age 17. Currently using 20 bags/day. IV. Has been cutting down prior to coming to program. States only used 6 bags yesterday and 4 bags today. Denies sharing needles or works. States a sip of someone's methadone yesterday, but unsure of amount. Has been being prescribed Suboxone, but states has not taken for over a week. States want's to restart Suboxone in rehab. No Narcan kit @ home. Encouraged to obtain a kit. Cocaine use since age 16. Currently uses $100/day IV Nicotine uses since age 14. Smokes 1 PPD. PMHx: Chronic back pain. MHHx: Depression. Denies thoughts of harming self or others. SHx: Assisted. Unemployed. Denies legal issues. Patient Name: Dakota Moya Date: 1975 Address: [place] [address] Sex: Male Rx Written Rx Dispensed Drug Quantity Days Supply Prescriber Name Payment Method Dispenser 01/28/2020 01/28/2020 chlordiazepoxide 25 mg capsule 12 2 Kendal Owusu MD Medicaid [facility], [employer] Date: 1975 Address: [address] [place] [id number] Sex: Male Rx Written Rx Dispensed Drug Quantity Days Supply Prescriber Name Payment Method Dispenser 02/16/2020 02/17/2020 buprenorphine-naloxone 8-2 mg sl film 90 30 [facility], [facility] 01/11/2020 01/12/2020 buprenorphine-naloxone 8-2 mg sl film 90 30 [facility] 12/14/2019 buprenorphine-naloxone 8-2 mg sl film 90 30 [facility], [facility] 11/12/2019 11/13/2019 buprenorphine-naloxone 8-2 mg sl film 90 30 [facility], [facility] 10/13/2019 10/14/2019 suboxone 8 mg-2 mg sl film 90 30 Bang, Apryl Medicaid [facility] 09/22/2019 09/22/2019 suboxone 8 mg-2 mg sl film 63 21 Bang, Krista Medicaid [facility] 05/25/2019 05/27/2019 buprenorphine-naloxone 8-2 mg sl film 90 30 [facility], [facility] 05/13/2019 05/13/2019 buprenorphine-naloxone 8-2 mg sl film 42 14 [facility], [facility] 05/06/2019 05/06/2019 buprenorphine-naloxone 8-2 mg sl film 14 7 [facility], [facility] 05/05/2019 05/05/2019 buprenorphine-naloxone 4-1 mg sl film 4 2 [facility], [facility] 03/31/2019 03/31/2019 endocet 10-325 mg tablet 10 30 [facility], [facility] 03/03/2019 03/03/2019 endocet 10-325 mg tablet 20 30 [facility], [facility] Date: 1975 Address: [address] [place] [address] Sex: Male Rx Written Rx Dispensed Drug Quantity Days Supply Prescriber Name Payment Method Dispenser 07/09/2019 07/23/2019 buprenorphine-naloxone 8-2 mg sl film 60 20 Bang, Krista Insurance [facility] 06/19/2019 06/29/2019 buprenorphine-naloxone 8-2 mg sl film 30 10 Bang, Krista Insurance [facility] Exam Limitations: No Limitations - Ebola screening Have you traveled outside of the country in the last 21 days: No (Denies COVID exposure) Have you had contact with anyone from an Ebola affected area: No Have you been sick,other than usual withdrawal symptoms: No Do you have a fever: No - Review of Systems Constitutional: Diaphoresis, Changes in sleep (Difficulty falling asleep), Unintentional Wgt. Loss EENT: reports: Blurred Vision, Nose Congestion Respiratory: reports: No Symptoms reported Cardiac: reports: No Symptoms Reported GI: reports: Diarrhea (watery, brown/greenish), Nausea, Vomiting : reports: No Symptoms Reported Musculoskeletal: reports: Back Pain (Chronic back pain intermittent. Increases w/ bending and standing. Improves w/ laying down) Integumentary: reports: Lesions (from needles) Neuro: reports: Headache (Throbbing headache is a "6" in temples) Endocrine: reports: Increased Thirst Hematology: reports: No Symptoms Reported Psychiatric: reports: Judgement Intact, Mood/Affect Appropiate, Orientated x3, Agitated, Anxious, Depressed (Denies thoughts of harming self or others) Patient History - Patient Medical History Hx Anemia: No Hx Asthma: No Hx Chronic Obstructive Pulmonary Disease (COPD): No Hx Cancer: No Hx Cardiac Disorders: No Hx Congestive Heart Failure: No Hx Hypertension: No Hx Hypercholesterolemia: No Hx Pacemaker: No HX Cerebrovascular Accident: No Hx Seizures: No Hx Diabetes: No Hx Gastrointestinal Disorders: No Hx Liver Disease: Yes (Hep. C) Hx Genitourinary Disorders: No Hx Sexually Transmitted Disorders: No Hx Renal Disease (ESRD): No Hx Thyroid Disease: No Hx Human Immunodeficiency Virus (HIV): No Hx Hepatitis C: Yes (TX'ED) Hx Depression: Yes (Not on medication) Hx Suicide Attempt: No Hx Bipolar Disorder: No Hx Schizophrenia: No - Patient Surgical History Past Surgical History: No Hx Neurologic Surgery: No Hx Cataract Extraction: No Hx Cardiac Surgery: No Hx Lung Surgery: No Hx Breast Surgery: No Hx Breast Biopsy: No Hx Abdominal Surgery: No Hx Appendectomy: No Hx Cholecystectomy: No Hx Genitourinary Surgery: No Hx Section: No Hx Orthopedic Surgery: No Anesthesia Reaction: No - PPD History Previous Implant?: Yes Implanted On Prior R Admission?: Yes Date: 08/29/18 Results: NO RESULTS PPD to be Administered?: Yes - Smoking Cessation Smoking history: Current every day smoker Have you smoked in the past 12 months: Yes Aproximately how many cigarettes per day: 20 Cigars Per Day: 0 Hx Chewing Tobacco Use: No Initiated information on smoking cessation: Yes 'Breaking Loose' booklet given: 03/02/20 - Substance & Tx. History Hx Alcohol Use: Yes Hx Substance Use: Yes Substance Use Type: Alcohol, Cocaine, Heroin, Opiates Hx Substance Use Treatment: Yes (detox, rehab, Suboxone) - Substances abused Alcohol Substance route: Oral Frequency: Daily Amount used: 1 pint and 2- 40 oz beers Age of first use: 14 Date of last use: 03/02/20 Heroin Substance route: Injection Frequency: Daily Amount used: 20-30 bags Age of first use: 17 Date of last use: 03/02/20 Cocaine Substance route: Injection Frequency: Daily Amount used: $100 Age of first use: 16 Date of last use: 03/02/20 Admission Physical Exam [facility] - Physical General Appearance: Yes: Nourished, Mild Distress, Tremorous, Irritable, Sweating (Increased facial moisture), Anxious HEENTM: Yes: EOMI (Jerking movement of eyes upon lateral gaze), Hearing grossly Normal, Normal ENT Inspection, Normocephalic, ELISABETH (Pupils = 3 mm), Pharynx Normal (Thickened saliva), Nasal Congestion, Rhinorrhea Respiratory: Yes: Lungs Clear, Normal Breath Sounds, No Respiratory Distress Neck: Yes: No masses,lesions,Nodules, Supple Breast: Yes: Breast Exam Deferred Cardiology: Yes: Regular Rhythm, Regular Rate, S1, S2 Abdominal: Yes: Non Tender, Flat, Soft, Increased Bowel Sounds Genitourinary: Yes: Within Normal Limits Back: Yes: Normal Inspection Musculoskeletal: Yes: full range of Motion, Gait Steady Extremities: Yes: Normal Capillary Refill 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: 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: 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 NML intact (Jerking movement of eyes upon lateral gaze), Fully Oriented, Alert, Motor Strength 5/5, Normal Mood/Affect Integumentary: Yes: Normal Color, Dry (Decreased skin turgor), Warm, Moist (Increased facial moisture), Track Awad (w/ increased erythema, warmth, and induration), Other (Superficial abrasions outer lateral feet) Lymphatic: Yes: Within Normal Limits - Diagnostic (1) Cellulitis Current Visit: Yes Status: Chronic Qualifiers: Site of cellulitis: extremity Site of cellulitis of extremity: upper extremity Laterality: unspecified laterality Qualified Code(s): L03.119 - Cellulitis of unspecified part of limb (2) Abrasion foot/toe Current Visit: Yes Status: Chronic Qualifiers: Encounter type: subsequent encounter Laterality: unspecified laterality Qualified Code(s): S90.819D - Abrasion, unspecified foot, subsequent encounter (3) Alcohol dependence with uncomplicated withdrawal Current Visit: Yes Status: Acute (4) At risk for dehydration due to poor fluid intake Current Visit: Yes Status: Acute (5) IVDU (intravenous drug user) Current Visit: Yes Status: Chronic (6) Opioid dependence with withdrawal Current Visit: Yes Status: Acute (7) Tinea pedis of both feet Current Visit: Yes Status: Chronic (8) Track awad due to intravenous drug abuse Current Visit: Yes Status: Chronic (9) Cocaine dependence Current Visit: Yes Status: Chronic Qualifiers: Substance use status: uncomplicated Qualified Code(s): F14.20 - Cocaine dependence, uncomplicated (10) Nicotine dependence Current Visit: Yes Status: Chronic Qualifiers: Nicotine product type: cigarettes Substance use status: uncomplicated Qualified Code(s): F17.210 - Nicotine dependence, cigarettes, uncomplicated (11) Unspecified nystagmus Current Visit: Yes Status: Acute Cleared for Admission S - Detox or Rehab [facility] Level of Care: Medically Managed Detox Regimen/Protocol: Methadone/Librium Claeared for Rehab Admission: No Breathalyzer - Breathalyzer Breathalyzer: 0 Urine Drug Screen - Test Device Lot number: [id number] Expiration date: 02/01/22 - Control Is test valid?: Yes - Results Drug screen NEGATIVE: No Urine drug screen results: ZEE-Cocaine, FEN-Fentanyl, MOP-Opiates, BZO- Benzodiazepines Inpatient Rehab Admission - Rehab Decision to Admit Inpatient rehab admission?: No
[2020-03-02] MEDS ORDERED: MAG HYDROX/AL HYDROX/SIMETH 30 ML UNIT-DOSE CUP PO PRN (17:32)
[2020-03-02] MEDS ORDERED: IBUPROFEN 400 MG TABLET (FP) PO PRN (17:32)
[2020-03-02] MEDS ORDERED: MENTHOL/PHENOL 1 EACH UD MM PRN (17:32)
[2020-03-02] MEDS ORDERED: chlordiazePOXIDE HCL 25 MG CAPSULE PO PRN (17:32)
[2020-03-02] MEDS ORDERED: MAGNESIUM CITRATE 300 ML BOTTLE PO PRN (17:32)
[2020-03-02] MEDS ORDERED: BISMUTH SUBSALICYLATE 524 MG/30 ML UD PO PRN (17:32)
[2020-03-02] MEDS ORDERED: METHOCARBAMOL 500 MG TABLET PO PRN (17:32)
[2020-03-02] MEDS ORDERED: MAGNESIUM HYDROX 2400MG/30ML ORAL SUSPENSION 30 ML CUP PO PRN (17:32)
[2020-03-02] MEDS ORDERED: cloNIDine HCL 0.1 MG TABLET PO PRN (17:32)
[2020-03-02] MEDS ORDERED: NICOTINE POLACRILEX 2 MG GUM BUC PRN (17:32)
[2020-03-02] MEDS ORDERED: ACETAMINOPHEN 325 MG TABLET (FP) PO PRN ×2 (17:32)
[2020-03-02 18:35] VITALS: BMI 23.8
[2020-03-02] MEDS ORDERED: ONDANSETRON *ODT* 4 MG TABLET SL ONE (18:45)
[2020-03-02] MEDS: CEPHALEXIN MONOHYDRATE 500 MG CAPSULE (UD) PO SCH ×2 (18:53→23:38)
[2020-03-02] MEDS ORDERED: METHADONE HCL 10 MG TABLET (FOR DETOX USE ONLY) PO ONE (22:00)
[2020-03-02] MEDS: MELATONIN 5 MG TABLETS PO SCH (23:37)
[2020-03-02] MEDS: BACITRACIN 0.9 GM PACKET TP SCH (23:37)
[2020-03-02] MEDS: TOLNAFTATE 1% CREAM 15 GM TUBE TP SCH (23:37)
[2020-03-02] MEDS: chlordiazePOXIDE HCL 25 MG CAPSULE PO SCH (23:38)
[2020-03-02] MEDS: THIAMINE HCL 100 MG TABLET (FP) PO SCH (23:39)
[2020-03-03] MEDS: CEPHALEXIN MONOHYDRATE 500 MG CAPSULE (UD) PO SCH ×3 (06:31→18:15)
[2020-03-03] MEDS: chlordiazePOXIDE HCL 25 MG CAPSULE PO SCH ×4 (06:31→22:17)
[2020-03-03] MEDS ORDERED: METHADONE HCL 10 MG TABLET (FOR DETOX USE ONLY) ONE (09:30)
[2020-03-03] MEDS ORDERED: METHADONE HCL 5 MG TABLET (FOR DETOX USE ONLY) ONE (09:30)
[2020-03-03] MEDS ORDERED: METHADONE (DETOX) 20 MG, METHADONE (DETOX) 5 MG PO ONE (10:00)
[2020-03-03] MEDS: NICOTINE 21 MG/24 HOURS TOPICAL PATCH TD SCH (10:40)
[2020-03-03] MEDS: BACITRACIN 0.9 GM PACKET TP SCH ×2 (10:40→22:18)
[2020-03-03] MEDS: PRENATAL VITAMINS W/ FOLIC ACID TABLET (FP) PO SCH (10:40)
[2020-03-03] MEDS: TOLNAFTATE 1% CREAM 15 GM TUBE TP SCH ×2 (10:41→22:18)
[2020-03-03 10:58] LABS: HEMATOCRIT 33.9 % (35.4-49); HEMOGLOBIN 11.3 GM/dL (11.7-16.9); MCH 24.4 pg (25.7-33.7); MCHC 33.3 g/dl (32.0-35.9); MEAN CELL VOLUME 73.5 fl (80-96); MEAN PLT VOLUME 10.2 fl (7.5-11.1); PLATELET COUNT 213 K/MM3 (134-434); RBC 4.61 M/mm3 (4.00-5.60); RDW 18.5 % (11.9-15.9); WHITE BLOOD COUNT 5.8 K/mm3 (4.0-10.0)
[2020-03-03 11:09] LABS: ALBUMIN 2.8 g/dl (3.4-5.0); BILIRUBIN,TOTAL 0.5 mg/dL (0.2-1); BLOOD UREA NITROGEN 13.3 mg/dL (7-18); CALCIUM 8.3 mg/dL (8.5-10.1); CREATININE 0.8 mg/dL (0.55-1.3); POTASSIUM 4.5 mmol/L (3.5-5.1); TOT PROT 6.8 g/dl (6.4-8.2)
--- NOTE | 2020-03-03 14:55 | PN ---
[facility] CIWA - CIWA Score Nausea/Vomitin Muscle Tremors: 3 Anxiety: 3 Agitation: 3 Paroxysmal Sweats: 1-Minimal Palms Moist Orientation: 0-Oriented Tacttile Disturbances: 1-Very Mild Itch/Numbness Auditory Disturbances: 0-None Visual Disturbances: 0-None Headache: 1-Very Mild CIWA-Ar Total Score: 14 [facility] COWS - Scale Resting Pulse: 0= [place] 80 or Below Sweatin= No chills or Flushing Restless Observation: 0= Sits Still Pupil Size: 1= Pupils >than Normal Bone or Joint Aches: 2= Severe Diffuse Aches Runny Nose/ Eye Tearin= Runny Nose/Eyes GI Upset > 30mins: 2= Nausea/Diarrhea Tremor Observation of Outstretched Hands: 2= Slight Tremor Visible Yawning Observation: 1= 1-2x During Session Anxiety or Irritability: 2=Irritable/Anxious Goose Flesh Skin: 0=Smooth Skin COWS Score: 12 [facility] Progress Note (SOAP) Subjective: alert,irritable,anxious,interrupted sleep,tremor,pain in the body and back,nausea,diarrhea Objective: 03/03/20 14:54 Vital Signs Temperature 97.6 F 03/03/20 12:49 Pulse Rate 55 L 03/03/20 12:49 Respiratory Rate 16 03/03/20 12:49 Blood Pressure 124/67 03/03/20 12:49 O2 Sat by Pulse Oximetry (%) 100 03/03/20 12:49 Assessment: 03/03/20 14:54 withdrawal symptom Plan: continue detox methadone and librium regimen
--- NOTE | 2020-03-03 15:30 | EKG ---
Test Reason : Blood Pressure : / mmHG Vent. Rate : 079 BPM Atrial Rate : 079 BPM P-R Int : 146 ms QRS Dur : 080 ms QT Int : 410 ms P-R-T Axes : 070 043 045 degrees QTc Int : 470 ms NORMAL SINUS RHYTHM WITH SINUS ARRHYTHMIA MINIMAL VOLTAGE CRITERIA FOR LVH, MAY BE NORMAL VARIANT BORDERLINE ECG WHEN COMPARED WITH ECG OF 05-SEP-2017 23:13, NO SIGNIFICANT CHANGE WAS FOUND Confirmed by DIANA STEPHENS, AYDIN ([id number]) on 03/03/2020 3:29:43 PM Referred By: Confirmed By:AYDIN ORTIZ MD
[2020-03-03 20:14] LABS: PH,URINE 8.5 (5.0-8.0); URINE APPEARANCE CLEAR; URINE BILIRUBIN NEGATIVE (NEGATIVE); URINE COLOR YELLOW; URINE GLUCOSE (UA) NEGATIVE (NEGATIVE); URINE KETONE NEGATIVE (NEGATIVE); URINE LEUK ESTERASE NEGATIVE (NEGATIVE); URINE NITRITE NEGATIVE (NEGATIVE); URINE PROTEIN NEGATIVE (NEGATIVE)
[2020-03-03] MEDS: THIAMINE HCL 100 MG TABLET (FP) PO SCH (22:18)
[2020-03-03] MEDS: MELATONIN 5 MG TABLETS PO SCH (22:18)
[2020-03-04] MEDS: CEPHALEXIN MONOHYDRATE 500 MG CAPSULE (UD) PO SCH ×3 (00:56→15:15)
[2020-03-04] MEDS: chlordiazePOXIDE HCL 25 MG CAPSULE PO SCH ×2 (06:57→10:43)
[2020-03-04] MEDS ORDERED: METHADONE HCL 10 MG TABLET (FOR DETOX USE ONLY) PO ONE (10:00)
--- NOTE | 2020-03-04 10:05 | PN ---
[facility] CIWA - CIWA Score Nausea/Vomitin-No Nausea/No Vomiting Muscle Tremors: None Anxiety: 3 Agitation: 1-Slight > Activity Paroxysmal Sweats: No Perspiration Orientation: 1-Uncertain about Date Tacttile Disturbances: 0-None Auditory Disturbances: 0-None Visual Disturbances: 0-None Headache: 0-None Present CIWA-Ar Total Score: 5 S COWS - Scale Resting Pulse: 0= AL 80 or Below Sweatin= No chills or Flushing Restless Observation: 0= Sits Still Pupil Size: 0= Normal to Room Light Bone or Joint Aches: 1= Mild Discomfort Runny Nose/ Eye Tearin= Nasal Congestion GI Upset > 30mins: 0= None Tremor Observation of Outstretched Hands: 0= None Yawning Observation: 0= None Anxiety or Irritability: 2=Irritable/Anxious Goose Flesh Skin: 0=Smooth Skin COWS Score: 4 S Progress Note (SOAP) Subjective: Complains of feeling anxious Objective: 03/04/20 10:03 PE Gnl: WD, WN, in no distress, in bed/covers over his head MS: irritable Motor; moves limbs well Coord; nl, no tremor Laboratory Tests 03/02/20 03/03/20 03/03/20 18:20 08:10 08:10 WBC 5.8 RBC 4.61 Hgb 11.3 L Hct 33.9 L MCV 73.5 L MCH 24.4 L MCHC 33.3 RDW 18.5 H Plt Count 213 D MPV 10.2 Sodium 138 Potassium 4.5 Chloride 105 Carbon Dioxide 30 Anion Gap 4 L BUN 13.3 Creatinine 0.8 Est GFR (CKD-EPI)AfAm 125.04 Est GFR (CKD-EPI)NonAf 107.88 Random Glucose 87 Calcium 8.3 L Total Bilirubin 0.5 AST 60 H ALT 95 H Alkaline Phosphatase 105 Total Protein 6.8 Albumin 2.8 L Urine Color Urine Appearance Urine pH Ur Specific [place] Urine Protein Urine Glucose (UA) Urine Ketones Urine Blood Urine Nitrite Urine Bilirubin Urine Urobilinogen Ur Leukocyte Esterase Syphilis Serology COVID-19 (MARÍA) Not detected 03/03/20 03/03/20 08:10 15:50 WBC RBC Hgb Hct MCV MCH MCHC RDW Plt Count MPV Sodium Potassium Chloride Carbon Dioxide Anion Gap BUN Creatinine Est GFR (CKD-EPI)AfAm Est GFR (CKD-EPI)NonAf Random Glucose Calcium Total Bilirubin AST ALT Alkaline Phosphatase Total Protein Albumin Urine Color Yellow Urine Appearance Clear Urine pH 8.5 H D Ur Specific [place] 1.010 Urine Protein Negative Urine Glucose (UA) Negative Urine Ketones Negative Urine Blood Negative Urine Nitrite Negative Urine Bilirubin Negative Urine Urobilinogen 1.0 Ur Leukocyte Esterase Negative Syphilis Serology Non-reactive COVID-19 (MARÍA) Home Medication List Medication Instructions Recorded Confirmed Type Albuterol Sulfate Inhaler - 2 inhaler PO Q4HWA PRN 12/05/18 03/02/20 History Active Medications Generic Name Dose Route Start Last Admin Trade Name Freq PRN Reason Stop Dose Admin Acetaminophen 650 mg 03/02/20 17:32 Tylenol - PO Q6H PRN PAIN LEVEL 4 - 6 Acetaminophen 650 mg 03/02/20 17:32 Tylenol - PO Q6H PRN FEVER Al Hydroxide/Mg Hydroxide 30 ml 03/02/20 17:32 Mylanta Oral Suspension - PO Q6H PRN DYSPEPSIA Bacitracin 0.9 gm 03/02/20 22:00 03/03/20 22:18 Bacitracin - TP 0.9 gm BID MERRY Administration Bismuth Subsalicylate 524 mg 03/02/20 17:32 Pepto-Bismol - PO Q1H PRN DIARRHEA Cephalexin HCl 500 mg 03/02/20 18:00 03/04/20 06:57 Keflex - PO 03/09/20 17:59 Not Given Q6HPO MERRY Chlordiazepoxide HCl 25 mg 03/04/20 05:00 03/04/20 06:57 Librium - PO 03/04/20 23:01 Not Given B2C-APM MERRY Chlordiazepoxide HCl 25 mg 03/02/20 17:32 03/02/20 18:54 Librium - PO 03/04/20 23:59 25 mg Q4H PRN Administration WITHDRAWAL(CONT SUBST) Chlordiazepoxide HCl 10 mg 03/05/20 05:00 Librium - PO 03/05/20 23:01 [id number] MERRY Chlordiazepoxide HCl 10 mg 03/06/20 05:00 Librium - PO 03/06/20 17:01 Q12H MERRY Chlordiazepoxide HCl 10 mg 09/05/20 00:00 Librium - PO 03/06/20 00:00 Q4H PRN WITHDRAWAL(CONT SUBST) Chlordiazepoxide HCl 10 mg 03/07/20 05:00 Librium - PO 03/07/20 05:01 ONCE@0500 ONE Clonidine 0.1 mg 03/02/20 17:32 Catapres - PO 03/04/20 23:59 Q4H PRN Withdrawal Symptoms Eucalyptus/Menthol/Phenol/Sorbitol 1 each 03/02/20 17:32 Cepastat Lozenge - MM 03/08/20 17:33 Q4H PRN SORE THROAT Ibuprofen 400 mg 03/02/20 17:32 Motrin - PO Q6H PRN PAIN LEVEL 1 - 3 Magnesium Citrate 300 ml 03/02/20 17:32 Citroma - PO Q48H PRN CONSTIPATION Magnesium Hydroxide 30 ml 03/02/20 17:32 Milk Of Magnesia - PO PRN PRN CONSTIPATION Melatonin 5 mg 03/02/20 22:00 03/03/20 22:18 Melatonin PO 5 mg HS MERRY Administration Methadone HCl 5 mg 03/07/20 06:00 Dolophine - PO 03/07/20 06:01 ONCE@0600 ONE Methadone HCl 10 mg 03/06/20 10:00 Dolophine - PO 03/06/20 10:01 ONCE ONE Methadone HCl 10 mg/ Methadone 15 mg 03/05/20 10:00 HCl 5 mg PO 03/05/20 10:01 ONCE ONE Methocarbamol 500 mg 03/02/20 17:32 Robaxin - PO 03/08/20 17:33 Q6H PRN MUSCLE SPASMS Nicotine 21 mg 03/03/20 10:00 03/03/20 10:40 Nicoderm Patch - TD Not Given DAILY MERRY Nicotine Polacrilex 2 mg 03/02/20 17:32 Nicorette Gum - BUC Q2H PRN NICOTINE REPLACEMENT RX Multivit/Folic Acid/Iron 1 tab 03/03/20 10:00 03/03/20 10:40 Vitamins (Sjr) - PO 1 tab DAILY MERRY Administration Thiamine HCl 100 mg 03/02/20 22:00 03/03/20 22:18 Vitamin B1 - PO 100 mg HS MERRY Administration Tolnaftate 1 applic 03/02/20 22:00 03/03/20 22:18 Tinactin 1% Cream - TP 1 applic BID MERRY Administration Vital Signs Temperature 97.6 F 03/04/20 08:35 Pulse Rate 59 L 03/04/20 08:35 Respiratory Rate 18 03/04/20 08:35 Blood Pressure 122/74 03/04/20 08:35 O2 Sat by Pulse Oximetry (%) 100 03/03/20 12:49 Assessment: 03/04/20 10:00 44 yo presented 03/02/20 w/ alcohol and opioid withdrawal symptoms seeking detox. ELMO: 0.0 UTox: + ZEE/FEN/MOP/MTD Denies seizures, blackouts, or overdoses. Alcohol use began at age 14. 7-40 oz beers and 1 pint vodka or whiskey daily. Last drink today. Heroin use since age 17. Currently using 20 bags/day. IV. Has been cutting down prior to coming to program. States only used 6 bags yesterday and 4 bags today. Denies sharing needles or works. States a sip of someone's methadone yesterday, but unsure of amount. Has been being prescribed Suboxone, but states has not taken for over a week. States want's to restart Suboxone in rehab. No Narcan kit @ home. Encouraged to obtain a kit. Cocaine use since age 16. Currently uses $100/day IV Nicotine uses since age 14. Smokes 1 PPD. PMHx: Chronic back pain. MHHx: Depression. Denies thoughts of harming self or others. SHx: [place]. Unemployed. Denies legal issues. Imp 1. alcohol use disorder 2. Alcohol use disorder 3. Cocaine use disorder 4. Nicotine dependence 5. Chronic back pain 6. Depression 03/04/20 10:07 Plan: 1. Librium detox projected completion 03/07 2. Methadone detox projected completion 03/07
[2020-03-04] MEDS: BACITRACIN 0.9 GM PACKET TP SCH (10:45)
[2020-03-04] MEDS: NICOTINE 21 MG/24 HOURS TOPICAL PATCH TD SCH (10:45)
[2020-03-04] MEDS: PRENATAL VITAMINS W/ FOLIC ACID TABLET (FP) PO SCH (10:45)
[2020-03-04] MEDS: TOLNAFTATE 1% CREAM 15 GM TUBE TP SCH (10:47)
[2020-03-04 13:04] VITALS: BP 126/67; PULSE 81; TEMP 97.7
--- NOTE | 2020-03-04 13:45 | DS ---
[facility] Detox Discharge Summary Admission Date: 03/02/20 Discharge Date: 03/04/20 - History Present History: Alcohol Dependence, Opioid Dependence Pertinent Past History: Imp 1. Opioid use disorder 2. Alcohol use disorder 3. Cocaine use disorder 4. Nicotine dependence 5. Chronic back pain 6. Depression 03/04/20 10:07 Plan: 1. Pt insists on leaving, attempted to talk to pt with counselor, pt refuses to discuss reasons for leaving - Physical Exam Results Vital Signs: Vital Signs Temperature 97.7 F 03/04/20 12:55 Pulse Rate 81 03/04/20 12:55 Respiratory Rate 18 03/04/20 12:55 Blood Pressure 126/67 03/04/20 12:55 O2 Sat by Pulse Oximetry (%) 100 03/03/20 12:49 - Medication Discharge Medications: Ambulatory Orders Albuterol Sulfate Inhaler - 2 inhaler PO Q4HWA PRN 12/05/18 - AMA Did Patient Leave Against Medical Advice: Yes
[2020-03-05] MEDS ORDERED: chlordiazePOXIDE HCL 10 MG CAPSULE PO PRN
[2020-03-05] MEDS ORDERED: chlordiazePOXIDE HCL 10 MG CAPSULE PO SCH (05:00)
[2020-03-05] MEDS ORDERED: METHADONE (DETOX) 10 MG, METHADONE (DETOX) 5 MG PO ONE (10:00)
[2020-03-06] MEDS ORDERED: chlordiazePOXIDE HCL 10 MG CAPSULE PO SCH (05:00)
[2020-03-06] MEDS ORDERED: METHADONE HCL 10 MG TABLET (FOR DETOX USE ONLY) PO ONE (10:00)
[2020-03-07] MEDS ORDERED: chlordiazePOXIDE HCL 10 MG CAPSULE PO ONE (05:00)
[2020-03-07] MEDS ORDERED: METHADONE HCL 5 MG TABLET (FOR DETOX USE ONLY) PO ONE (06:00)
== END 2020-03-04 15:45 | disposition left against medical advice (07) | DRG 770 ==
LOC: YASAS 15:44 → Y3N 17:55
PROVIDERS: ADMIT Allergy & Immunology; ATTEND Allergy & Immunology
PROC: HZ2ZZZZ Detoxification Services for Substance Abuse Treatment (ICD-10-PCS; principal; 2020-03-02)
DX: F10.230 Alcohol dependence with withdrawal, uncomplicated (principal); F11.23 Opioid dependence with withdrawal; F14.20 Cocaine dependence, uncomplicated; F17.210 Nicotine dependence, cigarettes, uncomplicated; F32.9 Major depressive disorder, single episode, unspecified; L03.119 Cellulitis of unspecified part of limb; H55.00 Unspecified nystagmus; M54.5 Low back pain; G89.29 Other chronic pain; B35.3 Tinea pedis; R63.8 Other symptoms and signs concerning food and fluid intake; Z86.19 Personal history of other infectious and parasitic diseases; Z56.0 Unemployment, unspecified; Z59.0 Homelessness; S90.812D Abrasion, left foot, subsequent encounter; S90.811D Abrasion, right foot, subsequent encounter; X58.XXXD Exposure to other specified factors, subsequent encounter
CPT/HCPCS: 36415; 80053; 81003; 85027; 86780; 93005; 93010; U0003

== ENCOUNTER 2021-04-21 16:12 | Inpatient (IN) | payer OTHER ==
[2021-04-21 17:48] VITALS: BMI 24.2
[2021-04-21] MEDS ORDERED: MAGNESIUM CITRATE 300 ML BOTTLE PO PRN (20:42)
[2021-04-21] MEDS ORDERED: MENTHOL/PHENOL 1 EACH UD MM PRN (20:42)
[2021-04-21] MEDS ORDERED: MAG HYDROX/AL HYDROX/SIMETH 30 ML UNIT-DOSE CUP PO PRN (20:42)
[2021-04-21] MEDS ORDERED: IBUPROFEN 400 MG TABLET (FP) PO PRN (20:42)
[2021-04-21] MEDS ORDERED: BISMUTH SUBSALICYLATE 524 MG/30 ML PO PRN (20:42)
[2021-04-21] MEDS ORDERED: NALOXONE (NARCAN) HCL 4 MG/0.1 ML SPRAY NS PRN (20:42)
[2021-04-21] MEDS ORDERED: NICOTINE 10 MG CARTRIDGE (INHALER) IH PRN (20:42)
[2021-04-21] MEDS ORDERED: MAGNESIUM HYDROX 2400MG/30ML ORAL SUSPENSION 30 ML CUP PO PRN (20:42)
[2021-04-21] MEDS ORDERED: METHOCARBAMOL 500 MG TABLET PO PRN (20:42)
[2021-04-21] MEDS ORDERED: diazePAM 5 MG TABLET PO PRN (20:42)
[2021-04-21] MEDS ORDERED: cloNIDine HCL 0.1 MG TABLET PO PRN (20:42)
[2021-04-21] MEDS ORDERED: methaDONE HCL 10 MG TABLET (FOR DETOX USE ONLY) PO ONE (20:42)
[2021-04-21] MEDS ORDERED: ACETAMINOPHEN 325 MG TABLET (FP) PO PRN ×2 (20:42)
[2021-04-21] MEDS: MELATONIN 5 MG TABLETS PO SCH (22:16)
[2021-04-21] MEDS: THIAMINE HCL 100 MG TABLET (FP) PO SCH (22:16)
[2021-04-21] MEDS: diazePAM 5 MG TABLET PO SCH (22:16)
[2021-04-22] MEDS: diazePAM 5 MG TABLET PO SCH ×3 (05:42→18:10)
[2021-04-22] MEDS ORDERED: methaDONE HCL 10 MG TABLET (FOR DETOX USE ONLY) ONE (09:26)
[2021-04-22] MEDS ORDERED: PRENATAL VITAMINS W/ FOLIC ACID TABLET (FP) PO SCH (10:00)
[2021-04-22] MEDS: MELATONIN 5 MG TABLETS PO SCH (23:59)
[2021-04-23] MEDS: diazePAM 5 MG TABLET PO SCH
[2021-04-23] MEDS: THIAMINE HCL 100 MG TABLET (FP) PO SCH
[2021-04-23] MEDS ORDERED: diazePAM 5 MG TABLET PO SCH (06:00)
[2021-04-23 07:09] VITALS: TEMP 97.1
[2021-04-23 09:21] VITALS: BP 126/81; PULSE 77
[2021-04-23] MEDS ORDERED: methaDONE HCL 10 MG TABLET (FOR DETOX USE ONLY) PO ONE (10:00)
[2021-04-24] MEDS ORDERED: diazePAM 5 MG TABLET PO SCH (06:00)
[2021-04-25] MEDS ORDERED: diazePAM 5 MG TABLET PO ONE (06:00)
[2021-04-25] MEDS ORDERED: methaDONE HCL 10 MG TABLET (FOR DETOX USE ONLY) PO ONE (10:00)
== END 2021-04-23 10:37 | disposition left against medical advice (07) | DRG 770 ==
LOC: YASAS 16:12 → Y6N 21:31
PROVIDERS: ADMIT Allergy & Immunology; ATTEND Allergy & Immunology
PROC: HZ2ZZZZ Detoxification Services for Substance Abuse Treatment (ICD-10-PCS; principal; 2021-04-21)
DX: F11.23 Opioid dependence with withdrawal (principal); F10.230 Alcohol dependence with withdrawal, uncomplicated; F14.20 Cocaine dependence, uncomplicated; F17.210 Nicotine dependence, cigarettes, uncomplicated; I10 Essential (primary) hypertension; J45.20 Mild intermittent asthma, uncomplicated; Z86.19 Personal history of other infectious and parasitic diseases; Z59.00 Homelessness unspecified
CPT/HCPCS: 93005; 93010; C9803; U0003; U0005

== ENCOUNTER 2021-09-01 17:27 | Inpatient (IN) | payer OTHER ==
[2021-09-01] MEDS ORDERED: IBUPROFEN 400 MG TABLET (FP) PO PRN (21:24)
[2021-09-01] MEDS ORDERED: MAGNESIUM HYDROX 2400MG/30ML ORAL SUSPENSION 30 ML CUP PO PRN (21:24)
[2021-09-01] MEDS ORDERED: diazePAM 5 MG TABLET PO PRN (21:24)
[2021-09-01] MEDS ORDERED: MAG HYDROX/AL HYDROX/SIMETH 30 ML UNIT-DOSE CUP PO PRN (21:24)
[2021-09-01] MEDS ORDERED: ONDANSETRON *ODT* 4 MG TABLET SL PRN (21:24)
[2021-09-01] MEDS ORDERED: BISMUTH SUBSALICYLATE 524 MG/30 ML PO PRN (21:24)
[2021-09-01] MEDS ORDERED: MAGNESIUM CITRATE 300 ML BOTTLE PO PRN (21:24)
[2021-09-01] MEDS ORDERED: METHOCARBAMOL 500 MG TABLET PO PRN (21:24)
[2021-09-01] MEDS ORDERED: methaDONE HCL 10 MG TABLET (FOR DETOX USE ONLY) PO ONE (21:24)
[2021-09-01] MEDS ORDERED: LOPERAMIDE HCL 2 MG CAPSULE PO PRN (21:24)
[2021-09-01] MEDS ORDERED: ACETAMINOPHEN 325 MG TABLET (FP) PO PRN ×2 (21:24)
[2021-09-01] MEDS ORDERED: cloNIDine HCL 0.1 MG TABLET PO PRN (21:24)
[2021-09-01] MEDS ORDERED: MENTHOL/PHENOL 1 EACH UD MM PRN (21:24)
[2021-09-01] MEDS ORDERED: NICOTINE 10 MG CARTRIDGE (INHALER) IH PRN (21:24)
[2021-09-01 22:53] VITALS: BMI 23.2
[2021-09-01] MEDS: SULFAMETHOXAZOLE/TRIMETHOPRIM 800MG/160MG D.S. TABLET PO SCH (23:35)
[2021-09-01] MEDS: hydrOXYzine PAMOATE 25 MG CAPSULE (FP) PO SCH (23:35)
[2021-09-01] MEDS: MELATONIN 5 MG TABLETS PO SCH (23:36)
[2021-09-01] MEDS: THIAMINE HCL 100 MG TABLET (FP) PO SCH (23:36)
[2021-09-01] MEDS: diazePAM 5 MG TABLET PO SCH (23:37)
[2021-09-02] MEDS: diazePAM 5 MG TABLET PO SCH ×4 (06:42→23:14)
[2021-09-02] MEDS: hydrOXYzine PAMOATE 25 MG CAPSULE (FP) PO SCH ×5 (06:42→23:57)
[2021-09-02] MEDS ORDERED: methaDONE HCL 10 MG TABLET (FOR DETOX USE ONLY) ONE (09:13)
[2021-09-02] MEDS: SULFAMETHOXAZOLE/TRIMETHOPRIM 800MG/160MG D.S. TABLET PO SCH ×2 (11:41→23:15)
[2021-09-02] MEDS: PRENATAL VITAMINS W/ FOLIC ACID TABLET (FP) PO SCH (11:42)
[2021-09-02] MEDS: CLOTRIMAZOLE 1% CREAM TP SCH ×2 (11:42→23:15)
[2021-09-02] MEDS: MELATONIN 5 MG TABLETS PO SCH (23:15)
[2021-09-02] MEDS: THIAMINE HCL 100 MG TABLET (FP) PO SCH (23:15)
[2021-09-03] MEDS: diazePAM 5 MG TABLET PO SCH ×3 (07:26→22:51)
[2021-09-03] MEDS: hydrOXYzine PAMOATE 25 MG CAPSULE (FP) PO SCH ×5 (07:27→22:51)
[2021-09-03] MEDS ORDERED: methaDONE HCL 10 MG TABLET (FOR DETOX USE ONLY) PO ONE (10:00)
[2021-09-03] MEDS: PRENATAL VITAMINS W/ FOLIC ACID TABLET (FP) PO SCH (10:47)
[2021-09-03] MEDS: CLOTRIMAZOLE 1% CREAM TP SCH ×2 (11:00→22:51)
[2021-09-03] MEDS: SULFAMETHOXAZOLE/TRIMETHOPRIM 800MG/160MG D.S. TABLET PO SCH ×2 (11:00→22:51)
[2021-09-03] MEDS: MELATONIN 5 MG TABLETS PO SCH (22:51)
[2021-09-03] MEDS: THIAMINE HCL 100 MG TABLET (FP) PO SCH (22:51)
[2021-09-04] MEDS ORDERED: diazePAM 5 MG TABLET PO SCH (06:00)
[2021-09-04] MEDS: hydrOXYzine PAMOATE 25 MG CAPSULE (FP) PO SCH ×2 (07:06→10:57)
[2021-09-04] MEDS ORDERED: methaDONE HCL 10 MG TABLET (FOR DETOX USE ONLY) ONE (08:45)
[2021-09-04 09:19] VITALS: BP 115/59; PULSE 63; TEMP 97.5
[2021-09-04] MEDS: PRENATAL VITAMINS W/ FOLIC ACID TABLET (FP) PO SCH (10:56)
[2021-09-04] MEDS: CLOTRIMAZOLE 1% CREAM TP SCH (10:57)
[2021-09-04] MEDS: SULFAMETHOXAZOLE/TRIMETHOPRIM 800MG/160MG D.S. TABLET PO SCH (10:57)
[2021-09-05] MEDS ORDERED: diazePAM 5 MG TABLET PO ONE (06:00)
[2021-09-05] MEDS ORDERED: methaDONE HCL 10 MG TABLET (FOR DETOX USE ONLY) PO ONE (10:00)
== END 2021-09-04 12:21 | disposition left against medical advice (07) | DRG 770 ==
LOC: YASAS 17:27 → Y6N 22:45 → Y3N 09-04 00:02
PROVIDERS: ADMIT Allergy & Immunology; ATTEND Allergy & Immunology
PROC: HZ2ZZZZ Detoxification Services for Substance Abuse Treatment (ICD-10-PCS; principal; 2021-09-01)
DX: F11.23 Opioid dependence with withdrawal (principal); F10.230 Alcohol dependence with withdrawal, uncomplicated; F14.20 Cocaine dependence, uncomplicated; F17.210 Nicotine dependence, cigarettes, uncomplicated; F31.9 Bipolar disorder, unspecified; J45.20 Mild intermittent asthma, uncomplicated; B35.3 Tinea pedis; Z86.19 Personal history of other infectious and parasitic diseases; Z91.013 Allergy to seafood; Z59.00 Homelessness unspecified
CPT/HCPCS: C9803; U0003; U0005

== ENCOUNTER 2021-12-02 08:48 | Inpatient (IN) | payer OTHER ==
[2021-12-01 19:45] VITALS: BMI 23.8
[~2021-12-02 08:48] MED LIST: ACETAMINOPHEN 325 MG TABLET (FP) PO PRN; BENZOCAINE/MENTHOL (CHLORASEPTIC ) LOZENGE MM PRN; BISMUTH SUBSALICYLATE 524 MG/30 ML PO PRN; DICYCLOMINE HCL 10 MG CAPSULE PO PRN; IBUPROFEN 400 MG TABLET (FP) PO PRN; IBUPROFEN 600 MG TABLET (FP) PO PRN; LOPERAMIDE HCL 2 MG CAPSULE PO PRN; MAG HYDROX/AL HYDROX/SIMETH 30 ML UNIT-DOSE CUP PO PRN; MAGNESIUM CITRATE 300 ML BOTTLE PO PRN; MAGNESIUM HYDROX 2400MG/30ML ORAL SUSPENSION 30 ML CUP PO PRN; METHOCARBAMOL 500 MG TABLET PO PRN; NALOXONE HCL (KLOXXADO) 8 MG SPRAY NS PRN; NICOTINE 10 MG CARTRIDGE (INHALER) IH PRN; ONDANSETRON *ODT* 4 MG TABLET SL PRN
[2021-12-02] MEDS ORDERED: DOXYCYCLINE HYCLATE 100 MG CAPSULE PO SCH (10:00)
[2021-12-02] MEDS ORDERED: cloNIDine HCL 0.1 MG TABLET PO PRN (13:09)
[2021-12-02] MEDS ORDERED: methaDONE HCL 10 MG TABLET (FOR DETOX USE ONLY) PO ONE (13:09)
[2021-12-02] MEDS: hydrOXYzine PAMOATE 25 MG CAPSULE (FP) PO SCH ×4 (13:37→23:41)
[2021-12-02] MEDS: NICOTINE 21 MG/24 HOURS TOPICAL PATCH TD SCH (13:37)
[2021-12-02] MEDS: CLINDAMYCIN HCL 150 MG CAPSULE (FP) PO SCH ×2 (14:07→23:40)
[2021-12-02] MEDS: PRENATAL VITAMINS W/ FOLIC ACID TABLET (FP) PO SCH (14:08)
[2021-12-02] MEDS: diazePAM 5 MG TABLET PO PRN (14:09)
[2021-12-02] MEDS: diazePAM 5 MG TABLET PO SCH ×2 (17:00→23:41)
[2021-12-02] MEDS: DOXYCYCLINE HYCLATE 100 MG CAPSULE PO SCH (23:40)
[2021-12-02] MEDS: THIAMINE HCL 100 MG TABLET (FP) PO SCH (23:41)
[2021-12-02] MEDS: MELATONIN 5 MG TABLETS PO SCH (23:41)
[2021-12-03] MEDS: diazePAM 5 MG TABLET PO SCH ×4 (06:26→23:08)
[2021-12-03] MEDS: hydrOXYzine PAMOATE 25 MG CAPSULE (FP) PO SCH ×5 (06:27→23:08)
[2021-12-03] MEDS: CLINDAMYCIN HCL 150 MG CAPSULE (FP) PO SCH ×3 (06:27→23:08)
[2021-12-03] MEDS ORDERED: methaDONE HCL 10 MG TABLET (FOR DETOX USE ONLY) ONE (10:07)
[2021-12-03] MEDS: NICOTINE 21 MG/24 HOURS TOPICAL PATCH TD SCH (10:22)
[2021-12-03] MEDS: PRENATAL VITAMINS W/ FOLIC ACID TABLET (FP) PO SCH (10:22)
[2021-12-03] MEDS: DOXYCYCLINE HYCLATE 100 MG CAPSULE PO SCH ×2 (10:23→18:40)
[2021-12-03] MEDS: diazePAM 5 MG TABLET PO PRN (13:56)
[2021-12-03] MEDS: MELATONIN 5 MG TABLETS PO SCH (23:08)
[2021-12-03] MEDS: THIAMINE HCL 100 MG TABLET (FP) PO SCH (23:08)
[2021-12-04] MEDS ORDERED: diazePAM 5 MG TABLET PO SCH (06:00)
[2021-12-04] MEDS: CLINDAMYCIN HCL 150 MG CAPSULE (FP) PO SCH (06:18)
[2021-12-04] MEDS: hydrOXYzine PAMOATE 25 MG CAPSULE (FP) PO SCH (06:19)
[2021-12-04 08:46] VITALS: BP 147/92; PULSE 90; TEMP 97.1
[2021-12-04] MEDS ORDERED: methaDONE HCL 10 MG TABLET (FOR DETOX USE ONLY) PO ONE (10:00)
[2021-12-05] MEDS ORDERED: diazePAM 5 MG TABLET PO SCH (06:00)
[2021-12-06] MEDS ORDERED: diazePAM 5 MG TABLET PO ONE (06:00)
[2021-12-06] MEDS ORDERED: methaDONE HCL 10 MG TABLET (FOR DETOX USE ONLY) PO ONE (10:00)
== END 2021-12-04 08:20 | disposition left against medical advice (07) | DRG 770 ==
LOC: YASAS 08:48 → Y3N 12:53
PROVIDERS: ADMIT Allergy & Immunology; ATTEND Surgery
PROC: HZ2ZZZZ Detoxification Services for Substance Abuse Treatment (ICD-10-PCS; principal; 2021-12-02)
DX: F11.23 Opioid dependence with withdrawal (principal); F10.230 Alcohol dependence with withdrawal, uncomplicated; F14.20 Cocaine dependence, uncomplicated; F12.20 Cannabis dependence, uncomplicated; F17.210 Nicotine dependence, cigarettes, uncomplicated; F31.9 Bipolar disorder, unspecified; F90.9 Attention-deficit hyperactivity disorder, unspecified type; L03.113 Cellulitis of right upper limb; L03.114 Cellulitis of left upper limb; Z86.19 Personal history of other infectious and parasitic diseases; Z91.013 Allergy to seafood; Z59.00 Homelessness unspecified
CPT/HCPCS: 87811; C9803-CS; U0003; U0005

== ENCOUNTER 2022-03-15 21:08 | Inpatient (IN) | payer OTHER ==
[2022-03-15] MEDS ORDERED: LACTATED RINGERS SOLUTION 1000 ML INFUS.BAG IV ONE (22:19)
[2022-03-16] MEDS ORDERED: VANCOMYCIN 1 GM in D5W (PRE-DOCKED) 1,000 MG/250 ML IVPB ONE (01:19)
[2022-03-16] MEDS ORDERED: ACETAMINOPHEN 1000 MG/100 ML BAG IVPB ONE (01:24)
[2022-03-16 01:27] LABS: BASO % 0.4 % (0-2.0); EOS % 0.2 % (0-4.5); HEMATOCRIT 28.6 % (35.4-49); HEMOGLOBIN 9.7 GM/dL (11.7-16.9); LYMPH % 15.2 % (8-40); MCH 22.8 pg (25.7-33.7); MEAN CELL VOLUME 67.1 fl (80-96); MEAN PLT VOLUME 8.8 fl (7.5-11.1); MONO % 11.1 % (3.8-10.2); NEUT % 73.1 % (42.8-82.8); PLATELET COUNT 310 10^3/uL (134-434); RBC 4.27 M/mm3 (4.00-5.60); RDW 16.9 % (11.9-15.9); WHITE BLOOD COUNT 13.8 K/mm3 (4.0-10.0)
[2022-03-16] MEDS ORDERED: PIPERACILLIN/TAZOB 4.5 GM 4.5 GM in DEXTROSE 5%-WATER 100 ML IVPB ONE (01:27)
[2022-03-16 01:52] LABS: ALBUMIN 2.6 g/dl (3.4-5.0); BLOOD UREA NITROGEN 8.2 mg/dL (7-18); CALCIUM 8.2 mg/dL (8.5-10.1)
[2022-03-16] MEDS ORDERED: ACETAMINOPHEN INJECTION 100 ML IVPB ONE (01:53)
[2022-03-16] MEDS ORDERED: PIPERACILLIN/TAZOB 4.5 GM 4.5 GM/100 ML BAG IVPB ONE (01:53)
[2022-03-16 01:56] LABS: CREATININE 0.8 mg/dL (0.55-1.3)
[2022-03-16 01:58] LABS: BILIRUBIN,TOTAL 0.2 mg/dL (0.2-1); TOT PROT 7.7 g/dl (6.4-8.2)
[2022-03-16] MEDS ORDERED: SODIUM CHLORIDE 1,000 ML IV STA (03:02)
[2022-03-16] MEDS ORDERED: ACETAMINOPHEN 325 MG TABLET (FP) PO ONE (03:30)
[2022-03-16] MEDS ORDERED: ACETAMINOPHEN 325 MG TABLET (FP) ONE (03:53)
[2022-03-16] MEDS ORDERED: VANCOMYCIN/WATER FOR INJ (PEG) 1,000 MG/200 ML BAG IVPB ONE (04:15)
[2022-03-16] MEDS ORDERED: LORazepam 1 MG TABLET PO PRN (05:20)
[2022-03-16] MEDS ORDERED: FOLIC ACID INJECTION - 1 MG, THIAMINE HCL 100 MG, MULTIVIT INJECTION ADULT 10 ML in SOD... IVPB ONE (05:24)
[2022-03-16 06:03] LABS: URINE APPEARANCE CLOUDY; URINE BILIRUBIN NEGATIVE (NEGATIVE); URINE COLOR YELLOW; URINE GLUCOSE (UA) NEGATIVE (NEGATIVE); URINE KETONE NEGATIVE (NEGATIVE); URINE LEUK ESTERASE NEGATIVE (NEGATIVE); URINE NITRITE NEGATIVE (NEGATIVE); URINE PROTEIN NEGATIVE (NEGATIVE); URINE UROBILINOGEN 0.2 mg/dL (0.2-1.0)
[2022-03-16 06:13] LABS: PHENCYCLIDINE,URINE NEGATIVE (NEGATIVE); URINE BARBITURATES NEGATIVE (NEGATIVE); URINE BENZODIAZEPINES NEGATIVE (NEGATIVE)
[2022-03-16 06:15] LABS: URINE AMPHETAMINES NEGATIVE (NEGATIVE)
[2022-03-16 06:26] LABS: COCAINE, UR POSITIVE (NEGATIVE); METHADONE, UR POSITIVE (NEGATIVE); OPIATES, URI POSITIVE (NEGATIVE)
[2022-03-16] MEDS: SODIUM CHLORIDE 1,000 ML IV SCH (08:40)
[2022-03-16] MEDS ORDERED: methaDONE HCL 10 MG TABLET ONE (08:43)
[2022-03-16] MEDS ORDERED: PIPERACILLIN/TAZOB 3.375 GM 3.375 GM in DEXTROSE 5%-WATER - 50 ML IVPB SCH ×2 (09:00→11:00)
[2022-03-16] MEDS ORDERED: methaDONE HCL 10 MG TABLET PO ONE (09:00)
[2022-03-16] MEDS ORDERED: PIPERACILLIN/TAZOB 3.375 GM 3.375 GM/50 ML BAG IVPB ONE (09:01)
[2022-03-16 09:36] VITALS: RESP 18
[2022-03-16] MEDS ORDERED: VANCOMYCIN 1 GM in D5W (PRE-DOCKED) 1,000 MG/250 ML IVPB SCH (10:00)
[2022-03-16] MEDS: PIPERACILLIN/TAZOB 3.375 GM 3.375 GM in DEXTROSE 5%-WATER - 50 ML IVPB SCH ×2 (11:00→17:19)
[2022-03-16] MEDS: THIAMINE HCL 100 MG TABLET (FP) PO SCH (11:35)
[2022-03-16] MEDS: FOLIC ACID 1 MG TABLET (FP) PO SCH (11:35)
[2022-03-16] MEDS: NICOTINE 7 MG/24 HOURS TOPICAL PATCH TD SCH (11:35)
[2022-03-16] MEDS: ENOXAPARIN NA (PORCINE) 40 MG/0.4 ML DISP.SYRIN SQ SCH (11:35)
[2022-03-16 12:18] VITALS: BMI 22.8
[2022-03-16] MEDS: VANCOMYCIN PREMIX 1.5 GM 1,500 MG/300 ML BAG IVPB SCH (17:19)
[2022-03-17] MEDS: PIPERACILLIN/TAZOB 3.375 GM 3.375 GM in DEXTROSE 5%-WATER - 50 ML IVPB SCH ×3 (02:21→17:08)
[2022-03-17] MEDS: SODIUM CHLORIDE 1,000 ML IV SCH ×2 (08:40→18:00)
[2022-03-17] MEDS: ENOXAPARIN NA (PORCINE) 40 MG/0.4 ML DISP.SYRIN SQ SCH (09:38)
[2022-03-17] MEDS: NICOTINE 7 MG/24 HOURS TOPICAL PATCH TD SCH (09:38)
[2022-03-17] MEDS: THIAMINE HCL 100 MG TABLET (FP) PO SCH (09:39)
[2022-03-17] MEDS: FOLIC ACID 1 MG TABLET (FP) PO SCH ×2 (09:39→09:51)
[2022-03-17] MEDS ORDERED: VANCOMYCIN 1 GM in D5W (PRE-DOCKED) 1,000 MG/250 ML IVPB SCH (10:00)
[2022-03-17] MEDS: VANCOMYCIN PREMIX 1.5 GM 1,500 MG/300 ML BAG IVPB SCH (17:08)
[2022-03-18] MEDS ORDERED: LORazepam 0.5 MG TABLET PO PRN
[2022-03-18] MEDS ORDERED: PIPERACILLIN/TAZOBACTAM 3.375 GM VIAL IVPB ONE ×2 (00:57→16:56)
[2022-03-18] MEDS: PIPERACILLIN/TAZOB 3.375 GM 3.375 GM in DEXTROSE 5%-WATER - 50 ML IVPB SCH ×3 (01:00→16:59)
[2022-03-18] MEDS: SODIUM CHLORIDE 1,000 ML IV SCH (08:45)
[2022-03-18] MEDS: THIAMINE HCL 100 MG TABLET (FP) PO SCH (09:00)
[2022-03-18] MEDS: FOLIC ACID 1 MG TABLET (FP) PO SCH (09:00)
[2022-03-18] MEDS: ENOXAPARIN NA (PORCINE) 40 MG/0.4 ML DISP.SYRIN SQ SCH (09:00)
[2022-03-18] MEDS: NICOTINE 7 MG/24 HOURS TOPICAL PATCH TD SCH (09:09)
[2022-03-18] MEDS ORDERED: methaDONE HCL 10 MG TABLET PO ONE (10:00)
[2022-03-18] MEDS: VANCOMYCIN PREMIX 1.5 GM 1,500 MG/300 ML BAG IVPB SCH (16:59)
[2022-03-19] MEDS: PIPERACILLIN/TAZOB 3.375 GM 3.375 GM in DEXTROSE 5%-WATER - 50 ML IVPB SCH ×3 (01:00→18:38)
[2022-03-19] MEDS: SODIUM CHLORIDE 1,000 ML IV SCH ×2 (06:10→08:52)
[2022-03-19] MEDS: ENOXAPARIN NA (PORCINE) 40 MG/0.4 ML DISP.SYRIN SQ SCH (10:44)
[2022-03-19] MEDS: THIAMINE HCL 100 MG TABLET (FP) PO SCH (10:44)
[2022-03-19] MEDS: NICOTINE 7 MG/24 HOURS TOPICAL PATCH TD SCH (10:45)
[2022-03-19] MEDS: FOLIC ACID 1 MG TABLET (FP) PO SCH (10:45)
[2022-03-20] MEDS: PIPERACILLIN/TAZOB 3.375 GM 3.375 GM in DEXTROSE 5%-WATER - 50 ML IVPB SCH ×3 (01:56→17:23)
[2022-03-20] MEDS: THIAMINE HCL 100 MG TABLET (FP) PO SCH (09:43)
[2022-03-20] MEDS: NICOTINE 7 MG/24 HOURS TOPICAL PATCH TD SCH (09:43)
[2022-03-20] MEDS: DOXYCYCLINE HYCLATE 100 MG CAPSULE PO SCH ×2 (09:43→17:20)
[2022-03-20] MEDS: ENOXAPARIN NA (PORCINE) 40 MG/0.4 ML DISP.SYRIN SQ SCH (09:44)
[2022-03-20] MEDS: FOLIC ACID 1 MG TABLET (FP) PO SCH (09:44)
[2022-03-20] MEDS: SODIUM CHLORIDE 1,000 ML IV SCH (09:44)
[2022-03-20] MEDS ORDERED: methaDONE HCL 10 MG TABLET PO ONE (10:00)
[2022-03-20 23:07] VITALS: BP 135/83; PULSE 56; TEMP 98.5
[2022-03-21] MEDS: PIPERACILLIN/TAZOB 3.375 GM 3.375 GM in DEXTROSE 5%-WATER - 50 ML IVPB SCH (01:00)
== END 2022-03-21 08:50 | disposition home or self-care (01) | DRG 720 ==
LOC: JER 21:08 → JERBED 22:38 → J6S 03-16 12:20
PROVIDERS: ADMIT Internal Medicine; ATTEND Internal Medicine
DX: A41.9 Sepsis, unspecified organism (principal); U07.1 COVID-19; L03.115 Cellulitis of right lower limb; F10.230 Alcohol dependence with withdrawal, uncomplicated; D50.9 Iron deficiency anemia, unspecified; F14.20 Cocaine dependence, uncomplicated; J45.909 Unspecified asthma, uncomplicated; F32.A Depression, unspecified; F11.10 Opioid abuse, uncomplicated
CPT/HCPCS: 0241U-QW; 36415; 71045-TC-FY; 73552-TC-RT-FY; 73562-TC-RT-FY; 73590-TC-RT-FY; 73701-TC-RT; 73718-TC-RT; 80053; 80307; 81003; 82728; 83540; 83550; 83605; 84484; 85025; 85651; 86140; 87040; 87077; 87081; 87086; 93005; 93010; 99285-25; C9803-CS; Q9967; U0003; U0005

== ENCOUNTER 2022-05-15 17:02 | Inpatient (IN) | payer OTHER ==
[2022-05-15 20:30] VITALS: BMI 23.2
[2022-05-16] MEDS ORDERED: BISMUTH SUBSALICYLATE 524 MG/30 ML PO PRN (01:15)
[2022-05-16] MEDS ORDERED: IBUPROFEN 600 MG TABLET (FP) PO PRN (01:15)
[2022-05-16] MEDS ORDERED: MAGNESIUM HYDROX 2400MG/30ML ORAL SUSPENSION 30 ML CUP PO PRN (01:15)
[2022-05-16] MEDS ORDERED: MAG HYDROX/AL HYDROX/SIMETH 30 ML UNIT-DOSE CUP PO PRN (01:15)
[2022-05-16] MEDS ORDERED: NALOXONE HCL (KLOXXADO) 8 MG SPRAY NS PRN (01:15)
[2022-05-16] MEDS ORDERED: DICYCLOMINE HCL 10 MG CAPSULE PO PRN (01:15)
[2022-05-16] MEDS ORDERED: BENZOCAINE/MENTHOL (CHLORASEPTIC ) LOZENGE MM PRN (01:15)
[2022-05-16] MEDS ORDERED: NICOTINE POLACRILEX 2 MG GUM BUC PRN (01:15)
[2022-05-16] MEDS ORDERED: IBUPROFEN 400 MG TABLET (FP) PO PRN (01:15)
[2022-05-16] MEDS ORDERED: LOPERAMIDE HCL 2 MG CAPSULE PO PRN (01:15)
[2022-05-16] MEDS ORDERED: METHOCARBAMOL 500 MG TABLET PO PRN (01:15)
[2022-05-16] MEDS ORDERED: POLYETHYLENE GLYCOL (HEALTHYLAX) 3350 17 GM PACKET PO PRN (01:15)
[2022-05-16] MEDS ORDERED: hydrOXYzine PAMOATE 25 MG CAPSULE (FP) PO PRN (01:15)
[2022-05-16] MEDS ORDERED: ONDANSETRON *ODT* 4 MG TABLET SL PRN (01:15)
[2022-05-16] MEDS ORDERED: ACETAMINOPHEN 325 MG TABLET (FP) PO PRN ×2 (01:15)
[2022-05-16] MEDS ORDERED: cloNIDine HCL 0.1 MG TABLET PO PRN (01:19)
[2022-05-16] MEDS ORDERED: methaDONE HCL 10 MG TABLET (FOR DETOX USE ONLY) PO ONE (01:19)
[2022-05-16] MEDS ORDERED: chlordiazePOXIDE HCL 25 MG CAPSULE PO PRN (01:19)
[2022-05-16] MEDS ORDERED: CLINDAMYCIN HCL 300 MG CAPSULE PO SCH (06:00)
[2022-05-16] MEDS: chlordiazePOXIDE HCL 25 MG CAPSULE PO SCH ×3 (06:50→18:11)
[2022-05-16] MEDS ORDERED: CLINDAMYCIN HCL 150 MG CAPSULE (FP) PO SCH (08:05)
[2022-05-16] MEDS ORDERED: PRENATAL VITAMINS W/ FOLIC ACID TABLET (FP) PO SCH (10:00)
[2022-05-16] MEDS ORDERED: NICOTINE 14 MG/24 HOURS TOPICAL PATCH TD SCH (10:00)
[2022-05-16 12:40] VITALS: PULSE 58
[2022-05-16 16:58] VITALS: BP 110/63; RESP 19; TEMP 97.8
[2022-05-16] MEDS ORDERED: MELATONIN 5 MG TABLETS PO SCH (22:00)
[2022-05-16] MEDS ORDERED: THIAMINE HCL 100 MG TABLET (FP) PO SCH (22:00)
[2022-05-17] MEDS ORDERED: chlordiazePOXIDE HCL 25 MG CAPSULE PO SCH (05:00)
[2022-05-18] MEDS ORDERED: chlordiazePOXIDE HCL 10 MG CAPSULE PO PRN
[2022-05-18] MEDS ORDERED: chlordiazePOXIDE HCL 10 MG CAPSULE PO SCH (05:00)
[2022-05-18] MEDS ORDERED: methaDONE HCL 10 MG TABLET (FOR DETOX USE ONLY) PO ONE (10:00)
[2022-05-19] MEDS ORDERED: chlordiazePOXIDE HCL 10 MG CAPSULE PO SCH (05:00)
[2022-05-20] MEDS ORDERED: chlordiazePOXIDE HCL 10 MG CAPSULE PO ONE (05:00)
[2022-05-20] MEDS ORDERED: methaDONE HCL 10 MG TABLET (FOR DETOX USE ONLY) PO ONE (10:00)
== END 2022-05-16 20:05 | disposition left against medical advice (07) | DRG 770 ==
LOC: YASAS 17:02 → Y3N 05-16 01:22
PROVIDERS: ADMIT Allergy & Immunology; ATTEND Surgery
PROC: HZ2ZZZZ Detoxification Services for Substance Abuse Treatment (ICD-10-PCS; principal; 2022-05-16)
DX: F11.23 Opioid dependence with withdrawal (principal); F10.230 Alcohol dependence with withdrawal, uncomplicated; F14.20 Cocaine dependence, uncomplicated; F12.10 Cannabis abuse, uncomplicated; F17.210 Nicotine dependence, cigarettes, uncomplicated; F31.9 Bipolar disorder, unspecified; E78.5 Hyperlipidemia, unspecified; I10 Essential (primary) hypertension; J45.20 Mild intermittent asthma, uncomplicated; L03.115 Cellulitis of right lower limb; Z86.19 Personal history of other infectious and parasitic diseases; Z91.013 Allergy to seafood; Z56.0 Unemployment, unspecified; Z59.00 Homelessness unspecified
CPT/HCPCS: 99281-25; C9803-CS; U0003; U0005